=== PATIENT | female | born 1980 | race Caucasian/White ===

== ENCOUNTER → 2016-07-19 | Outpatient (CLI) | payer OTHER ==
[~2016-07-19] MED LIST: ALBUAER19; ERGO500037 PO; GLAT1INJ SQ; MECL25TA2 PO; ULT/50 PO
--- NOTE | 2016-07-22 07:52 | MAMMOGRAPHY REPORT ---
UNILATERAL LEFT DIGITAL DIAGNOSTIC MAMMOGRAM TOMOSYNTHESIS AND TARGETED LEFT ULTRASOUND: 07/19/2016 CLINICAL HISTORY: Callback from screening mammogram for left asymmetry and left breast calcification s. The patient reports a family history of breast cancer in her grandmother and sister. Her sister was in her 30s when diagnosed. TECHNIQUE: Breast tomosynthesis in addition to standard 2D mammography was performed. Left CC and MLO 2-D and tomosynthesis images and spot magnification left CC and ML views were obtained. COMPARISON: Comparison is made to exam dated: 07/10/2016 mammogram - [facility]. BREAST COMPOSITION: The tissue of the left breast is heterogeneously dense, which may obscure small masses. FINDINGS: Spot compression views of the left breast demonstrate a possible obscured mass in the lef t subareolar/9:00 breast. Spot magnification views demonstrate a few scattered punctate benign-appe aring calcifications in the left medial breast, without a suspicious cluster of calcifications seen. Targeted ultrasound was performed of the left breast in the region of the possible mammographic mass . In the left breast at 6:00 periareolar region, there is an oval slightly hypoechoic parallel christiana d mass which measures 1.4 x 0.7 x 1.1 cm. The margins are not completely circumscribed on the ultra sound images. This likely corresponds with the mammographic mass and is indeterminant. Recommend u ltrasound guided core needle biopsy for further evaluation. This likely represents a fibroadenoma. IMPRESSION: ACR BI-RADS CATEGORY 4: SUSPICIOUS, TARGETED ULTRASOUND ACR BI-RADS CATEGORY 4: SUSPICI OUS Hypoechoic 1.4 cm mass in the left breast at 6:00 periareolar region on ultrasound, which is felt to correlate with the mammographic mass. The mass is indeterminate and ultrasound guided core needle biopsy is recommended for further evaluation. This likely represents a fibroadenoma. A phone call was made to the physician's office to confirm faxed results were received. The patient has been verbally notified of the results. She tentatively scheduled the biopsy before leaving the department. Approximately 10% of breast cancers are not detected with mammography. A negative mammographic repor t should not delay biopsy if a clinically suggestive mass is present. Brianna Chen M.D. ah/:07/19/2016 08:29:15 Campus Administrative Assistant: Ramya MCGEE(Candelaria)(M), [facility] letter sent: Abnormal 4/5 BI-RADS Code: ACR BI-RADS Category 4: Suspicious Ultrasound BI-RADS: ACR BI-RADS Category 4: Suspic ious
== END | disposition home or self-care (01) ==
LOC: C.MAMM 07:44
PROVIDERS: ATTEND Obstetrics & Gynecology
DX: R92.0 Mammographic microcalcification found on diagnostic imaging of breast (principal); N64.89 Other specified disorders of breast; N63 Unspecified lump in breast

== ENCOUNTER → 2016-07-24 | Outpatient (CLI) | payer OTHER ==
--- NOTE | 2016-07-24 08:47 | Discharge Instructions ---
Discharge Instructions Procedure Procedure Date: Jul 24, 2016. Reason for visit: Left Mass. Discharge Discharge Date: Jul 24, 2016. Discharge Diagnosis: post left breast ultrasound guided core biopsy Instructions Activity Recommendations: Additional Limitations (see below) Return to School/Work: no limitations Recommended Home Diet: No Limitations Provider Instructions: ACTIVITY RECOMMENDATIONS: * No lifting, pushing, pulling or exercising the affected side for three days. RETURN TO SCHOOL/WORK: * You may return to work/school after the procedure, but do not perform any strenuous activities for 24 to 48 hours. MEDICATIONS: * Tylenol (two 325 mg) every four to six hours if needed for mild pain (if not allergic to Tylenol). DIET: * Resume previous diet. SPECIAL CARE INSTRUCTIONS: * Keep biopsy site dry for 24 hours. May shower after 24 hours, but do not soak (bathe) incision. * May remove Tegaderm (plastic patch) tomorrow AFTER showering. * Leave the steri-strips on for one week. Allow the steri-strips to fall off by themselves. If not off after one week, you may remove them. You may place a Bandaid crosswise over the strips, if desired. * Apply ice 10 minutes on and 10 minutes off as needed. * Wear a bra at bedtime to sleep more comfortably for 2-3 days. * Your referring physician should have the results after approximately 5 to 7 business days. * Call for unusual bleeding, fever, drainage, etc or if you have any questions call [phone] during normal business hours or after hours call Dr Acevedo, . FOLLOW UP VISIT: Follow-up with Referring Physician as scheduled. Allergies Coded Allergies: Mustard (Verified Adverse Reaction, Intermediate, ABDOMINAL CRAMPS, 09/12/14 ) Penicillins (Verified Adverse Reaction, Intermediate, SEVERE NAUSEA AND VOMITTING, 09/12/14) Melida Sebastian Recommendations: Call your doctor if: * Temperature above 101 degrees * Pain not relieved by pain medicine ordered * There is increased drainage or redness from any incision * You have any unanswered questions or concerns. Your Doctors Instructions noted above were prepared by provider Perla Acevedo. Patient Signature Section: Patient Instructions Signature Page Shannon Garcia Patient (or Guardian) Signature/Date: I have read and understand the instructions given to me by my caregivers. Caregiver/RN/Doctor Signature/Date: The above-named patient and/or guardian has received patient instructions on this date. + Original Patient Signature Page (only) stays with chart. Please make copy for patient.
--- NOTE | 2016-07-26 08:28 | MAMMOGRAPHY REPORT ---
THIS REPORT HAS BEEN AMENDED. ULTRASOUND GUIDED BIOPSY LEFT BREAST: 07/24/2016 CLINICAL HISTORY: Indeterminate solid 1.4 cm mass in the 6:00 periareolar left breast. Patient pres ents for ultrasound-guided core needle biopsy. COMPARISON: Comparison is made to exams dated: 07/19/2016 ultrasound, 07/19/2016 mammogram, and 016 mammogram - [facility]. PATIENT CONSENT: The procedure, risks and benefits were discussed with the patient and informed writ ten consent was obtained. Specific risks to this procedure include: bleeding, infection, puncture of adjacent structure, nontarget biopsy, sampling error and medication reaction. PROCEDURE DESCRIPTION: A time out was performed and the right breast was agreed as the site of biops y. The skin was prepped and draped in the usual sterile fashion. The parallel hypoechoic solid mass in the 6:00 periareolar left breast was chosen as the target for biopsy. Subcutaneous and intraparen chymal 1% buffered lidocaine was administered as local anesthesia. A skin incision was made. Throug h the incision, 5 samples were taken with a 14 gauge Achieve biopsy device. A metallic marker was pl aced at the biopsy site. Hemostasis was achieved after manual compression. The patient tolerated the procedure well and there was no immediate complication. The samples were sent to the pathology dep artment in appropriately labeled container. Postprocedure left CC and ML tomosynthesis images were obtained. There is a new ribbon-shaped metal lic biopsy marker outlining with the mammographic mass in question. No significant postbiopsy hemat steven is identified. IMPRESSION: ULTRASOUND GUIDED BIOPSY Status post ultrasound-guided core biopsy of a solid mass in the 6:00 periareolar left breast, with biopsy marker placed at the site. The patient will receive notification of the biopsy results from her referring physician. Perla Acevedo M.D. ay/:07/24/2016 09:05:24 Attending Technologist: Dr. Perla Acevedo, [facility] Attraction Attendant: Mary MCGEE(R)(M), [facility] AMENDMENT: 07/31/2016 Perla Acevedo M.D. Pathology results from ultrasound guided core biopsy of a hypoechoic solid mass in the deep 6:00 lef t breast yielded a benign fibroepithelial proliferation. See comments. Negative for DCIS and invas otoniel carcinoma. Sections revealed dense fibrous tissue with admixed benign appearing ductal structur es. The features are suggestive of a fibroadenoma though a well-defined border with surrounding tis dinh is not identified within the biopsies and the typical intracanalicular growth pattern is not see n. Given these pathology results and the benign mammographic appearance would recommend repeat left carl mography and repeat targeted ultrasound to ensure stability in 6 months. letter sent: Follow Up Recommended 3
--- NOTE | 2016-07-26 08:31 | MAMMOGRAPHY REPORT ---
UNILATERAL LEFT DIGITAL DIAGNOSTIC MAMMOGRAM TOMOSYNTHESIS: 07/24/2016 CLINICAL HISTORY: Indeterminate solid appearing mass in the 6:00 periareolar left breast. Patient p resents for ultrasound-guided core needle biopsy. Please refer to the report from left breast ultrasound guided core biopsy performed at the same time for full detail. IMPRESSION: POST PROCEDURE IMAGING FOR MARKER PLACEMENT Please refer to the report from left breast ultrasound guided core biopsy performed at the same time for full detail. Approximately 10% of breast cancers are not detected with mammography. A negative mammographic repor t should not delay biopsy if a clinically suggestive mass is present. Perla Acevedo M.D. ay/:07/24/2016 08:47:54 Silver Wrapper: Mary MCGEE(R)(M), [facility] BI-RADS Code: Post Procedure Imaging For Marker Placement
== END | disposition home or self-care (01) ==
LOC: C.MAMM 07:39
PROVIDERS: ATTEND Obstetrics & Gynecology
DX: N63 Unspecified lump in breast (principal)

== ENCOUNTER → 2016-12-26 | Outpatient (CLI) | payer OTHER ==
[2016-12-26 12:09] LABS: BASO % 0.4 %; BASO ABS # 0.04 K/uL (0-0.2); COMPLETE YES; HEMATOCRIT 41.3 % (37-47); IG% 0.2 %; LYMPH % 22.3 %; LYMPH ABS # 2.03 K/uL (1.2-3.4); MEAN CELL VOLUME 89.8 fL (80-100); MEAN CORPUSCULAR HEMOGLOBIN 30.2 pg (25-34); MEAN CORPUSCULAR HGB CONC 33.7 g/dl (32-36); MEAN PLATELET VOLUME 10.1 fL (7.4-10.4); MONO % 9.9 %; NEUT % 65.2 %; PLATELET COUNT 340 K/uL (130-400); WHITE BLOOD COUNT 9.09 K/uL (4.8-10.8)
[2016-12-26 12:21] LABS: ALT/SGPT 22 U/L (12-78); BLOOD UREA NITROGEN 9 mg/dl (7-18); BUN/CREATININE RATIO 12.3 (10-20); CARBON DIOXIDE 24 mmol/L (21-32); CHLORIDE 106 mmol/L (98-107); CHOLESTEROL 148 mg/dl (0-200); CREATININE 0.69 mg/dl (0.60-1.20); GLUCOSE 94 mg/dl (70-99); POTASSIUM 3.8 mmol/L (3.5-5.1); SODIUM 139 mmol/L (136-145)
[2016-12-26 12:24] LABS: ALB/GLOB RATIO 0.9 (0.9-2); ALKALINE PHOSPHATASE 64 U/L (45-117); AST/SGOT 16 U/L (15-37); CHOLESTEROL/HDL RATIO 2.9; HDL CHOLESTEROL 51 mg/dl; LDL CHOLESTEROL CALCULATED 88 mg/dl; TRIGLYCERIDES 47 mg/dl (0-150); VERY LOW DENSITY LIPOPROT CALC 9 mg/dl
[2016-12-26 12:29] LABS: CALCIUM 8.8 mg/dl (8.5-10.1)
== END | disposition home or self-care (01) ==
LOC: C.LAB1850 10:53
PROVIDERS: ATTEND Family Medicine
DX: Z13.220 Encounter for screening for lipoid disorders (principal); Z13.0 Encounter for screening for diseases of the blood and blood-forming organs and certain disorders involving the immune mechanism; R51 Headache; E53.8 Deficiency of other specified B group vitamins; E55.9 Vitamin D deficiency, unspecified

== ENCOUNTER → 2017-01-22 | Outpatient (CLI) | payer OTHER ==
--- NOTE | 2017-01-22 15:37 | MAMMOGRAPHY REPORT ---
UNILATERAL LEFT DIGITAL DIAGNOSTIC MAMMOGRAM TOMOSYNTHESIS WITH CAD AND TARGETED LEFT ULTRASOUND: 01/11 CLINICAL HISTORY: Status post ultrasound guided biopsy of a left 6:00 breast mass July 2016, which yielded a benign fibroepithelial proliferation, here for short interval follow-up. The patient repo rts no current complaints. TECHNIQUE: Breast tomosynthesis in addition to standard 2D mammography was performed. Current study was also evaluated with a Computer Aided Detection (CAD) system. Left CC and MLO 2-D and tomosynthes is images were obtained. COMPARISON: Comparison is made to exams dated: 07/24/2016 mammogram, 07/24/2016 ultrasound biopsy, 07/19 ultrasound, 07/19/2016 mammogram, and 07/10/2016 mammogram - [facility]. BREAST COMPOSITION: The tissue of the left breast is heterogeneously dense, which may obscure small masses. FINDINGS: Again noted is an obscured mass in the left inferior breast at approximately 6 to 7:00, wi th an associated biopsy marker clip within it. The mass does not appear significantly changed mammog raphically compared to the prior exam. The remainder of the left breast is stable compared to prior e xams, without suspicious masses, calcifications, or areas of architectural distortion noted. Targeted ultrasound was performed of the region of the previously biopsied mass. In the left 6:00 pe riareolar region, again noted is an oval hypoechoic mass. The mass currently measures 1.2 x 0.7 x 1. 0 cm, not significantly changed compared to the July 2016 exam where the mass measured 1.4 x 0.7 x 1.1 cm. A biopsy marker clip is seen within the mass. Given that the mass yielded benign pathology on biopsy and given the stability, the mass is considered benign and likely represents a fibroadenom a. IMPRESSION: ACR BI-RADS CATEGORY 2: BENIGN, TARGETED ULTRASOUND ACR BI-RADS CATEGORY 2: BENIGN The hypoechoic 1.2 cm mass in the left 6:00 breast is stable mammographically and sonographically com pared to the July 2016 exam. Given that the mass yielded benign pathology on biopsy and given the stability, the mass is considered benign and likely represents a fibroadenoma. There is no mammogra phic or targeted sonographic evidence of malignancy. Return to annual mammogram screening schedule is recommended, due June 2017. The patient has been verbally notified of the results. Approximately 10% of breast cancers are not detected with mammography. A negative mammographic report should not delay biopsy if a clinically suggestive mass is present. Brianna Chen M.D. ah/:01/22/2017 10:20:51 Fisher Crab: Frida YE (R)), [facility] letter sent: Normal 1/2 BI-RADS Code: ACR BI-RADS Category 2: Benign Ultrasound BI-RADS: ACR BI-RADS Category 2: Benign
== END | disposition home or self-care (01) ==
LOC: C.MAMM 09:50
PROVIDERS: ATTEND Nurse Practitioner
DX: R92.2 Inconclusive mammogram (principal)

== ENCOUNTER → 2017-07-11 | Outpatient (CLI) | payer OTHER ==
--- NOTE | 2017-07-15 13:36 | MAMMOGRAPHY REPORT ---
BILATERAL DIGITAL SCREENING MAMMOGRAM TOMOSYNTHESIS WITH CAD: 07/11/2017 CLINICAL HISTORY: Routine screening. Patient has no complaints. TECHNIQUE: Breast tomosynthesis in addition to standard 2D mammography was performed. Current study was also evaluated with a Computer Aided Detection (CAD) system. COMPARISON: Comparison is made to exams dated: 01/22/2017 ultrasound, 01/22/2017 mammogram, 07/24/2016 mammogram, 07/24/2016 ultrasound biopsy, 07/19/2016 ultrasound, and 07/19/2016 mammogram - [facility]. BREAST COMPOSITION: The tissue of both breasts is heterogeneously dense, which may obscure small mas ses. FINDINGS: No suspicious masses, calcifications, or areas of architectural distortion are noted in ei ther breast. There has been no significant interval change compared to prior exams. A biopsy marker clip is again noted within the left central posterior breast from prior benign biopsy. IMPRESSION: ACR BI-RADS CATEGORY 2: BENIGN There is no mammographic evidence of malignancy. A 1 year screening mammogram is recommended. The pa tient will receive written notification of the results. Approximately 10% of breast cancers are not detected with mammography. A negative mammographic report should not delay biopsy if a clinically suggestive mass is present. Brianna Chen M.D. /:07/11/2017 16:31:09 Blaster Helper: Ramya Sroto, [facility] letter sent: Normal 1/2 BI-RADS Code: ACR BI-RADS Category 2: Benign
== END | disposition home or self-care (01) ==
LOC: C.MAMM 08:41
PROVIDERS: ATTEND Physician Assistant
DX: Z12.31 Encounter for screening mammogram for malignant neoplasm of breast (principal)

== ENCOUNTER → 2017-07-11 | Outpatient (CLI) | payer OTHER ==
--- NOTE | 2017-07-11 09:37 | DIAGNOSTIC IMAGING REPORT ---
C-SPINE ROUTINE 4 OR 5 VIEWS CLINICAL HISTORY: Cervical radiculopathy. No recent trauma. COMPARISON STUDY: MRI of the cervical spine May 06, 2011. FINDINGS: Alignment of the cervical spine is anatomic with the exception of straightening. There is minimal osteophytosis at C6-C7. Facet joints are intact. There is mild bony neural foraminal narrowing of the right C6-C7 neural foramen. There is no fracture. IMPRESSION: 1. No cervical spine fracture. 2. Mild osteophytosis at C6-C7 with mild bony neural foraminal narrowing of the right C6-C7 neural foramen. Electronically signed by: Brandon Wilder M.D. 07/11/2017 9:36 AM Dictated Date/Time: 07/11/2017 9:33 AM
== END | disposition home or self-care (01) ==
LOC: C.RAD1850 09:12
PROVIDERS: ATTEND Family Medicine
DX: M54.12 Radiculopathy, cervical region (principal); M25.78 Osteophyte, vertebrae

== ENCOUNTER → 2017-07-21 | Outpatient (CLI) | payer OTHER ==
--- NOTE | 2017-07-21 20:32 | DIAGNOSTIC IMAGING REPORT ---
MRI OF THE CERVICAL SPINE WITHOUT IV CONTRAST CLINICAL HISTORY: Neck pain. Chronic upper extremity tingling and numbness. COMPARISON STUDY: MRI of the cervical spine dated 05/06/2011. TECHNIQUE: MRI of the cervical spine is performed utilizing various T1 and T2-weighted sequences in the axial and sagittal planes. IV contrast was not administered for this examination. FINDINGS: Cervical spine: Vertebral body height and alignment are maintained throughout the cervical spine. There is mild straightening of the cervical lordosis. The atlantodental articulation appears maintained. The spinous processes are intact as imaged. Tiny anterior osteophytes are seen in the lower cervical region. Intervertebral discs: Mild degenerative disc desiccation is seen. There is mild loss of height at C6-C7. Spinal cord: The cervical spinal cord is normal in morphology and signal intensity. C2-C3: Unremarkable. C3-C4: There is minimal disc bulge eccentric to the left. The central canal and neural foramina are patent. C4-C5: Unremarkable. C5-C6: A posterior disc osteophyte complex abuts the ventral cord. Predominantly uncovertebral arthropathy causes mild to moderate left greater than right neural foraminal stenosis. C6-C7: A posterior disc osteophyte complex abuts the ventral cord. Uncovertebral and facet arthropathy cause mild to moderate right greater than left neural foramen stenosis. C7-T1: Unremarkable. Soft tissues: The prevertebral and paraspinous soft tissues are within normal limits. Brain parenchyma: Partially imaged brain parenchyma at the skull base is normal in appearance. IMPRESSION: 1. The cervical spinal cord is normal in morphology and signal intensity. 2. Mild cervical spondylosis as above, greatest at C5-C6 and C6-C7. This has only modestly progressed from the 05/06/2011 examination. Dictated: 07/21/2017 7:59 PM Transcribed: 07/21/2017 8:31 PM [email or web address] Electronically signed by: Jorge Servin M.D. 07/21/2017 8:41 PM Dictated Date/Time: 07/21/2017 7:59 PM
== END | disposition home or self-care (01) ==
LOC: C.MRI 19:00
PROVIDERS: ATTEND Family Medicine
DX: M47.892 Other spondylosis, cervical region (principal)

== ENCOUNTER 2024-10-02 18:11 | Inpatient (IN) ==
[2024-10-02] MEDS: ASPIRIN CHEW 324 MG PO STA (18:35)
[2024-10-02] MEDS: MoRPHine SULFATE 4 MG/ML 1 ML CARP\\VIAL IV STA ×2 (18:35→20:52)
[2024-10-02] MEDS: ONDANSETRON INJ 2 MG/ML 2 ML VIAL IV STA (18:37)
--- NOTE | 2024-10-02 18:45 | Emergency Department Note ---
Impression & Plan Acute cholecystitis, Chest pain, Right upper quadrant abdominal pain, Cholelithiasis ED Provider Note NAME: DAVID DEL CID AGE: 43 SEX: F : 1980 ARRIVES VIA: Walk-In INFORMANT: Patient, ED PROVIDER(S): Chano Boykin DO CHIEF COMPLAINT: Chest pain HPI: The patient is a 43-year-old female who presented to the emergency department for an evaluation of anterior chest pain. She describes chest pain that goes down both arms. It goes into her back. The patient denies having any fevers. The patient denies having any coughing or lower extremity pain. She denies having any vomiting. She does complain of pain in her middle back. The patient does have a history of MS. She has not been on large doses of steroids recently. ROS: See above HPI for pertinent positives & negatives. A total of 10 systems reviewed and were otherwise negative. PAST MEDICAL HISTORY: See Below PAST SURGICAL HISTORY: See Below FAMILY HISTORY: See Below SOCIAL HISTORY: See Below HOME MEDICATIONS: See Below ALLERGIES: See Below VITALS: See Below PHYSICAL EXAMINATION: GENERAL: The is awake and alert. She is very anxious and appears to be uncomfortable. EYES: The conjunctivae are clear. The pupils are round and reactive. EARS, NOSE, MOUTH AND THROAT: The nose is without any evidence of any deformity. NECK: The neck is nontender and supple. RESPIRATORY: Normal respiratory effort is noted there is no evidence of wheezing rhonchi or rales CARDIOVASCULAR: Regular rate and rhythm noted there no murmurs rubs or gallops normal S1 normal S2. GASTROINTESTINAL: The abdomen was soft and mildly distended. There was significant right upper quadrant tenderness to palpation. MUSCULOSKELETAL/EXTREMITIES: There is no evidence of gross deformity full range of motion is noted in the hips and shoulders. SKIN: There is no obvious evidence of any rash. There are no petechiae, pallor or cyanosis noted. NEUROLOGIC: Patient is awake alert and oriented x3 MEDICAL DECISION MAKING: The patient is a 43-year-old female who presented to the emergency department for right upper quadrant abdominal pain. She initially started with chest pain into her back. On physical exam she had reproducible right upper quadrant abdominal pain. I discussed the patient's laboratory and radiographic studies with her. She was treated with IV pain medication and IV antiemetics in the emergency department. She was started on IV antibiotics when her ultrasound appeared to be consistent with distended gallbladder with gallstones. Given her physical exam this is worrisome for cholecystitis. I discussed her condition with the on-call general surgical group. I also discussed her condition with the on-call [facility] hospitalist group. They have agreed to evaluate the patient in the emergency department for further management and disposition. Triage Nursing notes reviewed. Prior medical records reviewed Vital Signs: reviewed and remarkable for no significant abnormalities Differential diagnosis: Cardiac ischemia, aortic dissection, pulmonary embolism, pneumothorax, pneumonia, pericarditis, myocarditis, esophageal rupture, GERD, cholecystitis, pancreatitis, musculoskeletal, as well as other pathologies. ER treatment provided: See below Diagnostics interpreted by me: ECG: EKG was obtained in the emergency department. My interpretation is normal sinus rhythm at 80 bpm. There was no PVCs noted. There was no acute ST segment abnormalities noted. This was compared to a tracing from September 28, 2020. No specific changes were noted. Cardiac Monitoring: An order was placed for continuous cardiac monitoring. The monitor shows a rate of 82 bpm with sinus rhythm. Laboratory studies: As stated above and show below. Imaging studies: See below. Radiographic imaging was reviewed by myself Consultation(s): I discussed this case with Ashish who is on-call for general surgery. Dr. Devlin who is on-call for the [facility] hospitalist group was notified about the patient. Past Med/Surg History Problem List (Updated 10/02/24 @ 21:13 by Chano Boykin DO) Right upper quadrant abdominal pain (Acute) Chest pain (Acute) Acute cholecystitis (Acute) Cholelithiasis (Acute) Hyperlipidemia Multiple sclerosis Mixed urge and stress incontinence Prediabetes Incomplete bladder emptying Mixed urge and stress incontinence Urinary Incontinence CMC (carpometacarpal) synovitis GERD (gastroesophageal reflux disease) Anxiety and depression Extrinsic asthma Headache, migraine Insomnia Vitamin B12 deficiency Vitamin D deficiency Medical History Dizziness 05/27/22 History of anesthesia reaction difficulty waking during last cystoscopy 11/2023 History of urinary tract infection History of COVID-19 Multiple, most recent summer 2022, symptoms resolved Pap smear of cervix with high grade squamous intraepithelial lesion (HGSIL) 2011 Surgical History S/P urological surgery (02/2024) cystoscopy / bulkamid procedure History of rotator cuff surgery (01/2024) left History of carpal tunnel release (2019) Left hand S/P tonsillectomy S/P LEEP (2011) For HGSIL, colposcopy w/ LEEP, neg bx, neg path on LEEP History of robot-assisted laparoscopic hysterectomy History of colposcopy (2006) LGSIL on 04/29/07 pap 11/2011 HGSIL pap, neg colpo bx, neg path on LEEP H/O tubal ligation History of appendectomy Family History Grandmother (Paternal) Breast cancer Cervical cancer Uterine cancer Ovarian cancer Family/Other Cerebral arterial aneurysm Father Diabetes Hypercholesteremia Mother Hypertension Grandfather (Maternal) Prostate cancer Denies family history of Colorectal cancer Social History Smoking Status: Never smoker Second Hand Exposure: No; Do You Dip or Chew Tobacco: No; Hx Alcohol Use: No Hx Substance Use: No Preferred Language: Nigerian Communication Ability: Effective Visual Impairment: No Limitations Hearing Ability: Normal Band Tacker Required: No Beliefs That Will Affect Care: None marital status: Single Current Living Situation: Family Current Living Situation Comment: Daughters w/ her current occupational status: employed current occupation: [employer] How many Children do You have: 2 Feels Safe at Home: Yes Childhood Exposure to Second-Hand Smoke: No Diet: low carbohydrate Diet Comment: no soda, no fast food caffeine: Yes (coffee) during the past year weight has: remained stable Dental Care, Regularly: Yes Physical Activity Frequency: Daily Physical Activity Frequency Comment: walking 2 miles daily, cardio at home Seatbelt Use: always Sunscreen Use: Yes Assistive Devices: None Allergies Allergies Allergy/AdvReac Type Severity Reaction Status Date / Time ferric subsulfate Allergy Unknown MONSEL'S Verified 08/13/24 10:03 SOLUTION-- VOMITTING, SEVERE STOMACH PAIN mustard AdvReac Intermediate Abdominal Verified 08/13/24 10:03 cramps Penicillins AdvReac Intermediate Severe N/V Verified 08/13/24 10:03 Home Meds Home Medications Medication Instructions Recorded Confirmed cyanocobalamin (vitamin B-12) 1,000 mcg sublingual QPM #30 tabs 03/08/19 08/13/24 1,000 mcg sublingual tablet cholecalciferol (vitamin D3) 25 2,000 unit PO QPM 08/02/22 08/13/24 mcg (1,000 unit) capsule Previous Rx's Medication Instructions Recorded rizatriptan 10 mg disintegrating 10 mg PO Q2H PRN migraine headache 08/04/23 tablet #12 tabs estradiol 0.075 mg/24 hr 1 patch transdermal .COMPLEX #24 ea 04/28/24 semiweekly transdermal patch meclizine 25 mg tablet 25 mg PO DAILY PRN history of 06/04/24 vertigo #30 tabs ocrelizumab 30 mg/mL intravenous 600 mg (20 mL) IV Q6MO 6 months 06/08/24 solution (Ocrevus) #20 mL ocrelizumab 30 mg/mL intravenous 600 mg (20 mL) IV .COMPLEX #20 mL 06/18/24 solution (Ocrevus) pantoprazole 40 mg tablet,delayed 40 mg PO DAILY #90 tabs 09/16/24 release albuterol sulfate 90 mcg/actuation 1 - 2 puff inhalation Q4H PRN 09/27/24 aerosol inhaler extrinsic asthma #8.5 grams tirzepatide (weight loss) 7.5 7.5 mg (0.5 mL) subcut .weekly #2 10/01/24 mg/0.5 mL subcutaneous pen mL injector (Zepbound) Results & Data (ED) Vital Signs Vital Signs - 24 hr 10/02/24 18:14 10/02/24 18:28 10/02/24 18:40 Temperature 36.6 C Temperature Source Temporal Artery Scan Pulse Rate 82 82 Pulse Rate [Apical] Pulse Rhythm [Apical] Pulse Strength [Apical] Respiratory Rate 18 Respiratory Effort / Characteristics Non-Labored Spontaneous Respiratory Depth Normal Respiratory Pattern Regular Blood Pressure 169/91 H Blood Pressure [Right Arm] Blood Pressure Mean 117 Blood Pressure Mean [Right Arm] Blood Pressure Position Sitting Blood Pressure Position [Right Arm] Pulse Oximetry 100 98 Oxygen Delivery Method Room Air Room Air Sepsis Recent Fever Within 48 Hours No Sepsis New/Unexplained Change in Mental Status N/A Sepsis Action Taken by Nursing No Action Required 10/02/24 18:40 10/02/24 18:40 10/02/24 19:08 Temperature Temperature Source Pulse Rate 78 Pulse Rate [Apical] 76 80 Pulse Rhythm [Apical] Regular Pulse Strength [Apical] Normal Respiratory Rate 16 13 16 Respiratory Effort / Characteristics Non-Labored Spontaneous Non-Labored Respiratory Depth Normal Normal Respiratory Pattern Regular Regular Blood Pressure Blood Pressure [Right Arm] 144/88 H 117/62 Blood Pressure Mean Blood Pressure Mean [Right Arm] 106 80 Blood Pressure Position Blood Pressure Position [Right Arm] Lying Pulse Oximetry 98 98 98 Oxygen Delivery Method Room Air Room Air Room Air Sepsis Recent Fever Within 48 Hours Sepsis New/Unexplained Change in Mental Status Sepsis Action Taken by Nursing 10/02/24 19:26 10/02/24 21:00 Temperature Temperature Source Pulse Rate Pulse Rate [Apical] 81 82 Pulse Rhythm [Apical] Regular Regular Pulse Strength [Apical] Normal Normal Respiratory Rate 16 16 Respiratory Effort / Characteristics Non-Labored Non-Labored Respiratory Depth Normal Normal Respiratory Pattern Regular Regular Blood Pressure Blood Pressure [Right Arm] 122/68 114/84 Blood Pressure Mean Blood Pressure Mean [Right Arm] 86 94 Blood Pressure Position Blood Pressure Position [Right Arm] Lying Lying Pulse Oximetry 96 96 Oxygen Delivery Method Room Air Room Air Sepsis Recent Fever Within 48 Hours Sepsis New/Unexplained Change in Mental Status Sepsis Action Taken by [facility] Medications Current Medication List: was personally reviewed by me Laboratory Data Attestation: I reviewed the patient's lab results. 10/02/24 18:23 10/02/24 18:23 Lab Results 10/02/24 Range/Units 18:23 WBC 10.66 (4.8-10.8) K/ul RBC 5.21 (4.20-5.40) M/uL Hgb 15.4 (12.0-16.0) g/dl Hct 44.8 (37.0-47.0) % MCV 86.0 (80.0-100.0) fL MCH 29.6 (25.0-34.0) pg MCHC 34.4 (32.0-36.0) g/dL RDW Std Deviation 40.2 (36.4-46.3) fL RDW Coeff of Mauricio 13.0 (11.5-14.5) % Plt Count 393 (130-400) K/uL MPV 10.8 (9.4-12.4) fL Immature Gran % (Auto) 0.3 % Neut % (Auto) 57.5 % Lymph % (Auto) 29.7 % Glenn % (Auto) 10.0 % Eos % (Auto) 2.0 % Baso % (Auto) 0.5 % Neut # (Auto) 6.13 (1.40-6.50) K/uL Lymph # (Auto) 3.17 (1.20-3.40) K/uL Glenn # (Auto) 1.07 H (0.11-0.59) K/uL Eos # (Auto) 0.21 (0.00-0.50) K/uL Baso # (Auto) 0.05 (0.00-0.20) K/uL Immature Gran # (Auto) 0.03 (0.01-0.20) K/uL PT 11.3 (9.0-12.0) Seconds INR 1.0 (0.9-1.1) APTT 31 (21-31) Seconds PTT Ratio 1.2 Sodium 142 (136-145) mmol/L Potassium 3.4 L (3.5-5.1) mmol/L Chloride 106 (98-107) mmol/L Carbon Dioxide 24 (21-32) mmol/L Anion Gap 12 H (3-11) BUN 11 (6-23) mg/dl Creatinine 0.70 (0.6-1.2) mg/dl Est Cr Clr Drug Dosing 108.0 ml/min eGFR 109.30 BUN/Creatinine Ratio 15.7 (10-20) Glucose 118 H (70-99(Fasting)) mg/dl Calcium 9.7 (8.6-10.3) mg/dl Total Bilirubin 0.5 (0.2-1.0) mg/dl AST 42 H (13-39) U/L ALT 33 (7-52) U/L Alkaline Phosphatase 74 (34-104) U/L Troponin I High Sens 3.1 (0-14) pg/ml Total Protein 8.1 (6.0-8.3) gm/dl Albumin 4.8 (3.4-5.0) gm/dl Globulin 3.3 (2.5-4.0) gm/dl Albumin/Globulin Ratio 1.5 (0.9-2) Lipase 28 (11-82) U/L Administered Medications Discontinued Medications Aspirin (Aspirin Chew 324 Mg) 324 mg PO NOW STA Stop: 10/02/24 18:28 Last Admin: 10/02/24 18:35 Dose: Not Given Documented By: ELISE Promethazine HCl (Phenergan) 12.5 mg in 50.5 mls @ 202 mls/hr IV NOW STA Stop: 10/02/24 20:55 Last Admin: 10/02/24 20:52 Dose: 202 mls/hr Documented By: JEANINE Co-signed By: PAMELA Morphine Sulfate (Morphine Sulfate 4 Mg/Ml 1 Ml Carp\Vial) 4 mg IV NOW STA Stop: 10/02/24 18:28 Last Admin: 10/02/24 18:35 Dose: 4 mg Documented By: ELISE Morphine Sulfate (Morphine Sulfate 4 Mg/Ml 1 Ml Carp\Vial) 4 mg IV NOW STA Stop: 10/02/24 20:42 Last Admin: 10/02/24 20:52 Dose: 4 mg Documented By: JEANINE Co-signed By: PAMELA Ondansetron HCl (Ondansetron Inj 2 Mg/Ml 2 Ml Vial) 4 mg IV NOW STA Stop: 10/02/24 18:28 Last Admin: 10/02/24 18:37 Dose: 4 mg Documented By: ELISE Imaging Data Attestation: I personally reviewed and interpreted this imaging study as follows: My Impression: 1 view chest x-ray was obtained in the emergency department. My interpretation is no free air or definite infiltrate, final report below. Ultrasound of the right upper quadrant was obtained. My interpretation is distended gallbladder, final report below. Radiologist's Impression: Chest X-Ray 10/02/24 18:27 Chest radiograph, one view History: Chest pain Comparison: September 28, 2020 Findings: Single AP view of the chest performed. No focal consolidation or pleural effusion. No pneumothorax. The cardiomediastinal silhouette is within normal limits. Normal pulmonary vascularity. No evidence for lymphadenopathy. No visualized bony or soft tissue abnormality. Impression: Normal chest radiograph Electronically signed by García Vance 10-02-2024 8:01 PM Discharge Plan Visit Data Chief Complaint: Chest Pain Stated Complaint: CHEST PAIN ED Provider: Chano Boykin Discharge Problem: Acute cholecystitis, Chest pain, Right upper quadrant abdominal pain, Cholelithiasis Patient Disposition: Being Evaluated by Hospitalist Forms Stand Alone Forms: My [facility] Prescriptions Prescriptions: No Action Ocrevus 30 mg/mL solution 600 mg IV Q6MO 180 Days Qty: 20 1RF Ocrevus 30 mg/mL solution 600 mg IV .COMPLEX Qty: 20 1RF Rx Instructions: 600mg IV every 6 months. 30 mins before each infusion, Premedicate w/ Methylprednisolone 100mg IV, Diphenhydramine 25mg IV, and Acetaminophen 500mg PO.; May give an additional 25mg Diphenhydramine IV during infusion PRN pantoprazole 40 mg tablet,delayed release (DR/EC) 40 mg PO DAILY Qty: 90 0RF albuterol sulfate 90 mcg/actuation HFA aerosol inhaler 1 - 2 puff inhalation Q4H PRN (Reason: extrinsic asthma) Qty: 8.5 1RF Rx Instructions: 1 - 2 puffs inhalation Q4-6H PRN; Zepbound 7.5 mg/0.5 mL pen injector 7.5 mg subcut .weekly Qty: 2 0RF cyanocobalamin (vitamin B-12) 1,000 mcg tablet, sublingual 1,000 mcg SL QPM Qty: 30 rizatriptan 10 mg tablet,disintegrating 10 mg PO Q2H PRN (Reason: migraine headache) Qty: 12 5RF Rx Instructions: do not exceed 3 doses per 24 hrs cholecalciferol (vitamin D3) 25 mcg (1,000 unit) capsule 2,000 unit PO QPM estradiol 0.075 mg/24 hr patch semiweekly 1 patch transdermal .COMPLEX Qty: 24 4RF Rx Instructions: Replace patch every 3 to 4 days meclizine 25 mg tablet 25 mg PO DAILY PRN (Reason: history of vertigo) Qty: 30 1RF Referrals Referrals: Iza Apple DO [Primary Care Provider] -
[2024-10-02 18:54] LABS: Basophils # (auto) 0.05 K/uL (0.00-0.20); Basophils % (auto) 0.5 %; Eosinophils # (auto) 0.21 K/uL (0.00-0.50); Hematocrit (blood only) 44.8 % (37.0-47.0); Hemoglobin 15.4 g/dl (12.0-16.0); Immature Granulocytes # (auto) 0.03 K/uL (0.01-0.20); Immature Granulocytes % (auto) 0.3 %; Lymphocytes # (auto) 3.17 K/uL (1.20-3.40); Lymphocytes % (auto) 29.7 %; Mean Corpuscular Hemoglobin 29.6 pg (25.0-34.0); Mean Corpuscular Hgb Conc 34.4 g/dL (32.0-36.0); Mean Platelet Volume 10.8 fL (9.4-12.4); Monocytes # (auto) 1.07 K/uL (0.11-0.59); Neutrophils # (auto) 6.13 K/uL (1.40-6.50); Neutrophils % (auto) 57.5 %; Platelet Count 393 K/uL (130-400); RDW Standard Deviation 40.2 fL (36.4-46.3); Red Blood Count 5.21 M/uL (4.20-5.40); White Blood Count 10.66 K/ul (4.8-10.8)
[2024-10-02 19:10] LABS: Albumin Globulin Ratio 1.5 (0.9-2); Albumin Level 4.8 gm/dl (3.4-5.0); BUN Creatinine Ratio 15.7 (10-20); Bilirubin,Total 0.5 mg/dl (0.2-1.0); Calcium 9.7 mg/dl (8.6-10.3); Globulin 3.3 gm/dl (2.5-4.0); Potassium 3.4 mmol/L (3.5-5.1); Total Protein 8.1 gm/dl (6.0-8.3)
[2024-10-02 19:17] LABS: Troponin I High Sensitivity 3.1 pg/ml (0-14)
[2024-10-02 19:25] LABS: Partial Thromboplastin Ratio 1.2; Partial Thromboplastin Time 31 Seconds (21-31); Prothrombin Time 11.3 Seconds (9.0-12.0)
--- NOTE | 2024-10-02 20:01 | XRay Report ---
Chest radiograph, one view History: Chest pain Comparison: September 28, 2020 Findings: Single AP view of the chest performed. No focal consolidation or pleural effusion. No pneumothorax. The cardiomediastinal silhouette is within normal limits. Normal pulmonary vascularity. No evidence for lymphadenopathy. No visualized bony or soft tissue abnormality. Impression: Normal chest radiograph Electronically signed by García Vance 10-02-2024 8:01 PM
[2024-10-02] MEDS: PROMETHAZINE 12.5 MG/50.5 ML BAG IV STA (20:52)
--- NOTE | 2024-10-02 21:02 | History & Physical Report ---
Date of Service October 02, 2024 Assessment & Plan (1) Cholelithiasis: Plan: I evaluated the patient in room B3 in the emergency department. Due to findings on ultrasound and her clinical presentation she will be admitted to the surgical service proceeding as follows: Analgesia will be provided Antiemetics we provided Will hydrate her with IV fluids will make her n.p.o. after midnight (I do feel would be acceptable for her to have some clear liquids up until that time) we will repeat LFTs in the morning to ensure that there is not any transient elevation requiring further diagnostic evaluation Will initiate antibiotics cefoxitin will be utilized as the patient notes that penicillin type medicines cause severe nausea and vomiting Will tentatively plan on having the patient undergo cholecystectomy with Dr. Schneider this admission Will use SCDs for DVT prevention, no chemical means due to planned surgery She will be a level 1 full code History of Present Illness Chief Complaint: Cholelithiasis Primary Care Provider: Iza Apple DO This is a 43-year-old female who presented to the emergency department secondary to pain that was in the epigastric area with some radiation to her chest. She notes that since arrival to the emergency department the pain has since localized to her right upper quadrant. She did have nausea without vomiting. She denies any fevers, shakes, or chills. She notes that she has never had pain like this before and denies any postprandial pain over the past several weeks to months. She has had prior abdominal surgeries in the form of a hysterectomy and an appendectomy. She has not had any known cardiac issues. She does report that she has a history of multiple sclerosis and she receives ocrelizumab infusions with her most recent infusion being in July of this year. She notes that her next infusion is not due until January. She notes that her multiple sclerosis is stable. Since arrival to the emergency department patient has had labs and imaging which independent reviewed. CBC revealed white blood cell count, hemoglobin, hematocrit, and platelet count were normal. Coagulation studies were normal. Chemistry profile showed sodium is 142 with potassium of 3.4. BUN and creatinine are both normal. Her LFTs revealed that her total bilirubin, ALT and alkaline phosphatase are normal. Her AST is slightly elevated at 42. She has a nonelevated lipase. High-sensitivity troponin was not elevated at 3.1. An EKG showed normal sinus rhythm without changes indicative of acute ischemia. At the time of my interview the patient was resting comfortably in bed and she was in no distress. Allergies Allergy/AdvReac Type Severity Reaction Status Date / Time ferric subsulfate Allergy Unknown MONSEL'S Verified 08/13/24 10:03 SOLUTION-- VOMITTING, SEVERE STOMACH PAIN mustard AdvReac Intermediate Abdominal Verified 08/13/24 10:03 cramps Penicillins AdvReac Intermediate Severe N/V Verified 08/13/24 10:03 Home Medications Medication Instructions Recorded Confirmed Type cyanocobalamin (vitamin B-12) 1,000 mcg sublingual QPM #30 tabs 03/08/19 08/13/24 History 1,000 mcg sublingual tablet cholecalciferol (vitamin D3) 25 2,000 unit PO QPM 08/02/22 08/13/24 History mcg (1,000 unit) capsule rizatriptan 10 mg disintegrating 10 mg PO Q2H PRN migraine headache 08/04/23 08/13/24 Rx tablet #12 tabs estradiol 0.075 mg/24 hr 1 patch transdermal .COMPLEX #24 ea 04/28/24 08/13/24 Rx semiweekly transdermal patch meclizine 25 mg tablet 25 mg PO DAILY PRN history of 06/04/24 08/13/24 Rx vertigo #30 tabs ocrelizumab 30 mg/mL intravenous 600 mg (20 mL) IV Q6MO 6 months 06/08/24 08/13/24 Rx solution (Ocrevus) #20 mL ocrelizumab 30 mg/mL intravenous 600 mg (20 mL) IV .COMPLEX #20 mL 06/18/24 08/13/24 Rx solution (Ocrevus) pantoprazole 40 mg tablet,delayed 40 mg PO DAILY #90 tabs 09/16/24 Rx release albuterol sulfate 90 mcg/actuation 1 - 2 puff inhalation Q4H PRN 09/27/24 Rx aerosol inhaler extrinsic asthma #8.5 grams tirzepatide (weight loss) 7.5 7.5 mg (0.5 mL) subcut .weekly #2 10/01/24 Rx mg/0.5 mL subcutaneous pen mL injector (Zepbound) Past Med/Surg History Problem List (Updated 10/02/24 @ 20:58 by Fidel Jesus PA-C) Cholelithiasis Hyperlipidemia Multiple sclerosis Mixed urge and stress incontinence Prediabetes Incomplete bladder emptying Mixed urge and stress incontinence Urinary Incontinence CMC (carpometacarpal) synovitis GERD (gastroesophageal reflux disease) Anxiety and depression Extrinsic asthma Headache, migraine Insomnia Vitamin B12 deficiency Vitamin D deficiency Medical History Dizziness 05/27/22 History of anesthesia reaction difficulty waking during last cystoscopy 11/2023 History of urinary tract infection History of COVID-19 Multiple, most recent summer 2022, symptoms resolved Pap smear of cervix with high grade squamous intraepithelial lesion (HGSIL) 2011 Surgical History S/P urological surgery (02/2024) cystoscopy / bulkamid procedure History of rotator cuff surgery (01/2024) left History of carpal tunnel release (2019) Left hand S/P tonsillectomy S/P LEEP (2011) For HGSIL, colposcopy w/ LEEP, neg bx, neg path on LEEP History of robot-assisted laparoscopic hysterectomy History of colposcopy (2006) LGSIL on 04/29/07 pap 11/2011 HGSIL pap, neg colpo bx, neg path on LEEP H/O tubal ligation History of appendectomy Family History Grandmother (Paternal) Breast cancer Cervical cancer Uterine cancer Ovarian cancer Family/Other Cerebral arterial aneurysm Father Diabetes Hypercholesteremia Mother Hypertension Grandfather (Maternal) Prostate cancer Denies family history of Colorectal cancer Social History Smoking Status: Never smoker Second Hand Exposure: No; Do You Dip or Chew Tobacco: No; Hx Alcohol Use: No Hx Substance Use: No Preferred Language: Libyan Communication Ability: Effective Visual Impairment: No Limitations Hearing Ability: Normal Final Inspector Required: No Beliefs That Will Affect Care: None marital status: Single Current Living Situation: Family Current Living Situation Comment: Daughters w/ her current occupational status: employed current occupation: [employer] How many Children do You have: 2 Feels Safe at Home: Yes Childhood Exposure to Second-Hand Smoke: No Diet: low carbohydrate Diet Comment: no soda, no fast food caffeine: Yes (coffee) during the past year weight has: remained stable Dental Care, Regularly: Yes Physical Activity Frequency: Daily Physical Activity Frequency Comment: walking 2 miles daily, cardio at home Seatbelt Use: always Sunscreen Use: Yes Assistive Devices: None Review of Systems Review of Systems: All systems reviewed & are unremarkable except as noted in HPI & below Physical Exam Constitutional: WD/WN, vitals as above Eyes: + anicteric sclerae ENMT: Ears: no hearing impairment and no external ear abnormality Sublingual jaundice is absent Neck: trachea midline Respiratory: normal respiratory effort; no respiratory distress and no labored breathing Cardiovascular: Rate/Rhythm: regular rate and regular rhythm Gastrointestinal (Abdomen): Abdomen is soft without distention or rigidity. Patient did have significant pain with palpation in the right upper quadrant with a positive Diop sign. She Musculoskeletal: No calf tenderness Skin: no jaundice Neurologic: moves all extremities Psychiatric: A+Ox3, euthymic affect Results & Data Results & Data Vital Signs (Past 12 Hours) Vital Signs Temp Pulse Pulse Resp BP BP Pulse Ox 10/02/24 19:26 81 16 122/68 96 10/02/24 19:08 80 16 117/62 98 10/02/24 18:40 78 13 98 10/02/24 18:40 76 16 144/88 H 98 10/02/24 18:40 98 10/02/24 18:28 82 10/02/24 18:14 36.6 C 82 18 169/91 H 100 O2 Del Method 10/02/24 19:26 Room Air 10/02/24 19:08 Room Air 10/02/24 18:40 Room Air 10/02/24 18:40 Room Air 10/02/24 18:40 Room Air 10/02/24 18:28 10/02/24 18:14 Room Air PG Care Time/CCT Total # of Minutes Spent Total Time Spent with Patient: Total time spent is greater than 50% in coordination of care (as documented) at patient's floor/unit and/or counseling patient: Coding Level of Care Code 33922 INT INP/OBS CARE MIN Diagnoses Cholelithiasis K80.20
[2024-10-02] MEDS: cefOXitin 2,000 MG/60 ML BAG IV STA (21:18)
--- NOTE | 2024-10-02 21:18 | Surgery Consultation ---
Date of Consultation October 02, 2024 Assessment & Plan (1) Acute cholecystitis: I discussed with the treating emergency room physician the patient is going to be admitted on the hospitalist service. From surgery perspective we recommend the following: Provide analgesics Provide antiemetics I feel it would be acceptable for patient have clear liquids this evening that she should be made n.p.o. after midnight Will repeat LFTs in the morning Antibiotics in the form of cefoxitin have been initiated by the emergency department physician and he should continue Provided there are no medical contraindications we will tentatively have the patient undergo cholecystectomy on 10/03/[address] Schneider about any physician group general surgery SCDs to be used for DVT prevention, no chemical means due to planned surgery She will be a level 1 full code Supervising Physician Co-Signing Physician Notes pnt d/w ELISHA, labs and imaging reviewed, agree with above. abd pain, wbc 15, us with gallstones, no cholecystitis. admit to medicine, plan for lap sarbjit tomorrow if time and space available, if not then maybe friday. History of Present Illness Reason for Consultation: Gallstones History of Present Illness This is a 43-year-old female who presented to the emergency department secondary to pain that was in the epigastric area with some radiation to her chest. She has a since arrival to the emergency department the pain has since localized to her right upper quadrant. She did have nausea without vomiting. She had denies any fevers, shakes, or chills. She notes that she has never had pain like this before and denies any postprandial pain over the past several weeks to months. She has had prior abdominal surgery in the form of a hysterectomy and an appendectomy. She has not had any known cardiac issues. She does report that she has a history of multiple sclerosis and receives ocrelizumab infusionsshe notes her most recent was infusion was in July and her next one is not due until January of this year. She notes that she has not had any recent issues with her multiple sclerosis. Since arrival to the emergency department the patient has had labs and imaging which I independently reviewed. A CBC revealed white blood cell count, hemoglobin, hematocrit, and platelet count were normal. Coagulation studies were normal. Chemistry profile showed sodium was 142 with a potassium of 3.4. BUN and creatinine were both normal. Her LFTs revealed that her total bilirubin, ALT, and alkaline phosphatase were normal. Her AST is slightly elevated at 142. She had a nonelevated lipase. High-sensitivity troponin was not elevated at 3.1. An EKG showed normal sinus rhythm without changes indicative of acute ischemia. At the time of my interview the patient was resting comfortably in bed and she was in no distress. Allergies Allergy/AdvReac Type Severity Reaction Status Date / Time ferric subsulfate Allergy Unknown MONSEL'S Verified 08/13/24 10:03 SOLUTION-- VOMITTING, SEVERE STOMACH PAIN mustard AdvReac Intermediate Abdominal Verified 08/13/24 10:03 cramps Penicillins AdvReac Intermediate Severe N/V Verified 08/13/24 10:03 Home Medications Medication Instructions Recorded Confirmed Type cyanocobalamin (vitamin B-12) 1,000 mcg sublingual QPM #30 tabs 03/08/19 10/02/24 History 1,000 mcg sublingual tablet cholecalciferol (vitamin D3) 25 2,000 unit PO QPM 08/02/22 10/02/24 History mcg (1,000 unit) capsule rizatriptan 10 mg disintegrating 10 mg PO Q2H PRN migraine headache 08/04/23 10/02/24 Rx tablet #12 tabs estradiol 0.075 mg/24 hr 1 patch transdermal .COMPLEX #24 ea 04/28/24 08/13/24 Rx semiweekly transdermal patch meclizine 25 mg tablet 25 mg PO DAILY PRN history of 06/04/24 10/02/24 Rx vertigo #30 tabs ocrelizumab 30 mg/mL intravenous 600 mg (20 mL) IV Q6MO 6 months 06/08/24 10/02/24 Rx solution (Ocrevus) #20 mL ocrelizumab 30 mg/mL intravenous 600 mg (20 mL) IV .COMPLEX #20 mL 06/18/24 10/02/24 Rx solution (Ocrevus) pantoprazole 40 mg tablet,delayed 40 mg PO DAILY #90 tabs 09/16/24 10/02/24 Rx release albuterol sulfate 90 mcg/actuation 1 - 2 puff inhalation Q4H PRN 09/27/24 10/02/24 Rx aerosol inhaler extrinsic asthma #8.5 grams tirzepatide (weight loss) 7.5 7.5 mg (0.5 mL) subcut .weekly #2 03/21/25 03/22/25 Rx mg/0.5 mL subcutaneous pen mL injector (Zepbound) Patient History Medical History Dizziness 05/27/22 History of anesthesia reaction difficulty waking during last cystoscopy 11/2023 History of urinary tract infection History of COVID-19 Multiple, most recent summer 2022, symptoms resolved Pap smear of cervix with high grade squamous intraepithelial lesion (HGSIL) 2011 Surgical History S/P urological surgery (02/2024) cystoscopy / bulkamid procedure History of rotator cuff surgery (01/2024) left History of carpal tunnel release (2019) Left hand S/P tonsillectomy S/P LEEP (2011) For HGSIL, colposcopy w/ LEEP, neg bx, neg path on LEEP History of robot-assisted laparoscopic hysterectomy History of colposcopy (2006) LGSIL on 04/29/07 pap 11/2011 HGSIL pap, neg colpo bx, neg path on LEEP H/O tubal ligation History of appendectomy Family History Grandmother (Paternal) Breast cancer Cervical cancer Uterine cancer Ovarian cancer Family/Other Cerebral arterial aneurysm Father Diabetes Hypercholesteremia Mother Hypertension Grandfather (Maternal) Prostate cancer Denies family history of Colorectal cancer Social History Smoking Status: Never smoker Second Hand Exposure: No; Do You Dip or Chew Tobacco: No; Hx Alcohol Use: No Hx Substance Use: No Preferred Language: Irish Communication Ability: Effective Visual Impairment: No Limitations Hearing Ability: Normal Beauty Operator Required: No Beliefs That Will Affect Care: None marital status: Single Current Living Situation: Family Current Living Situation Comment: Daughters w/ her current occupational status: employed current occupation: [employer] How many Children do You have: 2 Feels Safe at Home: Yes Childhood Exposure to Second-Hand Smoke: No Diet: low carbohydrate Diet Comment: no soda, no fast food caffeine: Yes (coffee) during the past year weight has: remained stable Dental Care, Regularly: Yes Physical Activity Frequency: Daily Physical Activity Frequency Comment: walking 2 miles daily, cardio at home Seatbelt Use: always Sunscreen Use: Yes Assistive Devices: None Review of Systems Review of Systems: All systems reviewed & are unremarkable except as noted in HPI & below Physical Exam Constitutional: WD/WN, vitals as above Eyes: + anicteric sclerae ENMT: Ears: no hearing impairment and no external ear abnormality Sublingual jaundice is absent Neck: trachea midline Respiratory: normal respiratory effort; no respiratory distress and no labored breathing Cardiovascular: Rate/Rhythm: regular rate and regular rhythm Gastrointestinal (Abdomen): Abdomen is soft and nonrigid. It is nondistended. There is pain with palpation of the right upper quadrant with a positive Diop sign. Musculoskeletal: No calf tenderness Skin: no jaundice Neurologic: moves all extremities Psychiatric: A+Ox3, euthymic affect Results & Data Vital Signs (Past 12 Hours) Vital Signs Temp Pulse Pulse Resp BP BP Pulse Ox 10/02/24 21:00 82 16 114/84 96 10/02/24 19:26 81 16 122/68 96 10/02/24 19:08 80 16 117/62 98 10/02/24 18:40 78 13 98 10/02/24 18:40 76 16 144/88 H 98 10/02/24 18:40 98 10/02/24 18:28 82 10/02/24 18:14 36.6 C 82 18 169/91 H 100 O2 Del Method 10/02/24 21:00 Room Air 10/02/24 19:26 Room Air 10/02/24 19:08 Room Air 10/02/24 18:40 Room Air 10/02/24 18:40 Room Air 10/02/24 18:40 Room Air 10/02/24 18:28 10/02/24 18:14 Room Air PG Care Time/CCT Total # of Minutes Spent Total Time Spent with Patient: Total time spent is greater than 50% in coordination of care (as documented) at patient's floor/unit and/or counseling patient: Coding Level of Care Code 69007 IN/OBS CONSULT LVL 5,80M Diagnoses Acute cholecystitis K81.0
--- NOTE | 2024-10-02 21:32 | History & Physical Report ---
Date of Service October 02, 2024 Assessment & Plan (1) Acute cholecystitis: (2) Chest pain: (3) Multiple sclerosis: (4) GERD (gastroesophageal reflux disease): Admission and Anticipated Discharge Date Admission Date: 43yo female with history of HLP, GERD, MS presenting with acute onset chest pressure around 17:00. Patient now with RUQ abdominal pain and ongoing nausea. RUQUS performed, formal read pending, preliminary read with stones and findings concerning for acute cholecystitis. #Acute cholecystitis -Admit to medical with telemetry -Keep NPO LR at 100 mL/h x 2 L -Cefoxitin 1gm IV q 6 -Morphine PRN Zofran as needed nausea Repeat CBC, CMP and lipase in the morning General Surgery consultation appreciated Possible OR in the morning for cholecystectomy #Chest pain - Acute onset chest pain which has now progressed to right upper quadrant pain. EKG with no acute ischemic changes. Troponin = 3.1. Patient with low risk heart score. Hemodynamically stable with normal oxygenation on RA - PERC score=0 Telemetry monitoring Trend troponin every 6 hours #Multiple sclerosis Well-controlled.patient receives ocrelizumab injections. Last July. Due for 11 January. #GERD Protonix 40 mg IV daily F/E/N -LR at 100 mL/h x 2 L, potassium repletion with 60 mEq p.o., repeat blood work in the morning, n.p.o. after midnight ProphylaxisSCDs and GEORGIE stockings Codefull per discussion with patient Dispositionadmit to medical with telemetry History of Present Illness Chief Complaint: chest pain Primary Care Provider: DO Shannon Masonman is a 43yo female with history of MS on Ocrelizumab injections q 6 months (last in July 2024), GERD and HLP presenting from home with acute onset chest pain. Patient was resting around 17:00 when she developed acute onset of severe substernal chest discomfort . She took two 81mg ASA with no improvement in pain. Pain was non-radiating, non-exertional, non-pleuritic. She had nausea as well as some shortness of breath and diaphoresis. Her pain persisted until given Morphine in the ER. In the ER she developed fairly severe RUQ abdominal pain. Ongoing nausea. No additional complaints at this time. ER Course: ASA Cefoxitin Morphine Zofran Phenergan Allergies Allergy/AdvReac Type Severity Reaction Status Date / Time ferric subsulfate Allergy Unknown MONSEL'S Verified 08/13/24 10:03 SOLUTION-- VOMITTING, SEVERE STOMACH PAIN mustard AdvReac Intermediate Abdominal Verified 08/13/24 10:03 cramps Penicillins AdvReac Intermediate Severe N/V Verified 08/13/24 10:03 Home Medications Medication Instructions Recorded Confirmed Type cyanocobalamin (vitamin B-12) 1,000 mcg sublingual QPM #30 tabs 03/08/19 10/02/24 History 1,000 mcg sublingual tablet cholecalciferol (vitamin D3) 25 2,000 unit PO QPM 08/02/22 10/02/24 History mcg (1,000 unit) capsule rizatriptan 10 mg disintegrating 10 mg PO Q2H PRN migraine headache 08/04/23 10/02/24 Rx tablet #12 tabs estradiol 0.075 mg/24 hr 1 patch transdermal .COMPLEX #24 ea 04/28/24 08/13/24 Rx semiweekly transdermal patch meclizine 25 mg tablet 25 mg PO DAILY PRN history of 06/04/24 10/02/24 Rx vertigo #30 tabs ocrelizumab 30 mg/mL intravenous 600 mg (20 mL) IV Q6MO 6 months 06/08/24 10/02/24 Rx solution (Ocrevus) #20 mL ocrelizumab 30 mg/mL intravenous 600 mg (20 mL) IV .COMPLEX #20 mL 06/18/24 10/02/24 Rx solution (Ocrevus) pantoprazole 40 mg tablet,delayed 40 mg PO DAILY #90 tabs 09/16/24 10/02/24 Rx release albuterol sulfate 90 mcg/actuation 1 - 2 puff inhalation Q4H PRN 09/27/24 10/02/24 Rx aerosol inhaler extrinsic asthma #8.5 grams tirzepatide (weight loss) 7.5 7.5 mg (0.5 mL) subcut .weekly #2 10/01/24 10/02/24 Rx mg/0.5 mL subcutaneous pen mL injector (Zepbound) Past Med/Surg History Problem List Right upper quadrant abdominal pain (Acute) Chest pain (Acute) Acute cholecystitis (Acute) Cholelithiasis (Acute) Hyperlipidemia Multiple sclerosis Mixed urge and stress incontinence Prediabetes Incomplete bladder emptying Mixed urge and stress incontinence Urinary Incontinence CMC (carpometacarpal) synovitis GERD (gastroesophageal reflux disease) Anxiety and depression Extrinsic asthma Headache, migraine Insomnia Vitamin B12 deficiency Vitamin D deficiency Medical History Dizziness 05/27/22 History of anesthesia reaction difficulty waking during last cystoscopy 11/2023 History of urinary tract infection History of COVID-19 Multiple, most recent summer 2022, symptoms resolved Pap smear of cervix with high grade squamous intraepithelial lesion (HGSIL) 2011 Surgical History S/P urological surgery (02/2024) cystoscopy / bulkamid procedure History of rotator cuff surgery (01/2024) left History of carpal tunnel release (2019) Left hand S/P tonsillectomy S/P LEEP (2011) For HGSIL, colposcopy w/ LEEP, neg bx, neg path on LEEP History of robot-assisted laparoscopic hysterectomy History of colposcopy (2006) LGSIL on 04/29/07 pap 11/2011 HGSIL pap, neg colpo bx, neg path on LEEP H/O tubal ligation History of appendectomy Family History Grandmother (Paternal) Breast cancer Cervical cancer Uterine cancer Ovarian cancer Family/Other Cerebral arterial aneurysm Father Diabetes Hypercholesteremia Mother Hypertension Grandfather (Maternal) Prostate cancer Denies family history of Colorectal cancer Social History Smoking Status: Never smoker Second Hand Exposure: No; Do You Dip or Chew Tobacco: No; Hx Alcohol Use: No Hx Substance Use: No Preferred Language: Albanian Communication Ability: Effective Visual Impairment: No Limitations Hearing Ability: Normal Instructional Support Assistant Required: No Beliefs That Will Affect Care: None marital status: Single Current Living Situation: Family Current Living Situation Comment: Daughters w/ her current occupational status: employed current occupation: [employer] How many Children do You have: 2 Feels Safe at Home: Yes Childhood Exposure to Second-Hand Smoke: No Diet: low carbohydrate Diet Comment: no soda, no fast food caffeine: Yes (coffee) during the past year weight has: remained stable Dental Care, Regularly: Yes Physical Activity Frequency: Daily Physical Activity Frequency Comment: walking 2 miles daily, cardio at home Seatbelt Use: always Sunscreen Use: Yes Assistive Devices: None Review of Systems Review of Systems: All systems reviewed & are unremarkable except as noted in HPI & below Physical Exam Physical Exam: General: patient resting comfortably, NAD, non-toxic in appearance, AA&O x 4 Skin: warm, dry, intact, no rashes or lesions HEENT: NC/AT, PERRL, EOMI, anicteric sclera, conjunctiva without injection, external ear normal to inspection and nontender, nares patent, moist mucus membranes, dentition intact, no oropharyngeal lesions, neck supple, trachea midline, no LAD, no thyromegaly, no JVD Heart: +S1/S2, regular, no m/r/g Lungs: equal air entry bilaterally, no rales/rhonchi/wheezes Abd: +BS, soft, ND, tenderness in the RUQ with some voluntary guarding on exam, no masses/organomegaly/ascites Ext: warm, 2+ pulses in UE/LE bilaterally, no clubbing/cyanosis or edema Neuro: nonfocal, patient AA&O x 4, speech intact, no facial droop, moving all extremities on command with equal strength 5/5 Results & Data Results & Data Vital Signs (Past 12 Hours) Vital Signs Temp Pulse Pulse Resp BP BP Pulse Ox 10/02/24 21:00 82 16 114/84 96 10/02/24 19:26 81 16 122/68 96 10/02/24 19:08 80 16 117/62 98 10/02/24 18:40 78 13 98 10/02/24 18:40 76 16 144/88 H 98 10/02/24 18:40 98 10/02/24 18:28 82 10/02/24 18:14 36.6 C 82 18 169/91 H 100 O2 Del Method 10/02/24 21:00 Room Air 10/02/24 19:26 Room Air 10/02/24 19:08 Room Air 10/02/24 18:40 Room Air 10/02/24 18:40 Room Air 10/02/24 18:40 Room Air 10/02/24 18:28 10/02/24 18:14 Room Air Laboratory Results Laboratory Results WBC 10.66 K/ul (4.8-10.8) 10/02/24 18:23 RBC 5.21 M/uL (4.20-5.40) 10/02/24 18:23 Hgb 15.4 g/dl (12.0-16.0) 10/02/24 18:23 Hct 44.8 % (37.0-47.0) 10/02/24 18:23 MCV 86.0 fL (80.0-100.0) 10/02/24 18: MCH 29.6 pg (25.0-34.0) 10/02/24 18: MCHC 34.4 g/dL (32.0-36.0) 10/02/24 18:23 RDW Std Deviation 40.2 fL (36.4-46.3) 10/02/24 18: RDW Coeff of Mauricio 13.0 % (11.5-14.5) 10/02/24 18: Plt Count 393 K/uL (130-400) 10/02/24 18:23 MPV 10.8 fL (9.4-12.4) 10/02/24 18:23 Immature Gran % (Auto) 0.3 % 10/02/24 18:23 Neut % (Auto) 57.5 % 10/02/24 18:23 Lymph % (Auto) 29.7 % 10/02/24 18:23 [place] % (Auto) 10.0 % 10/02/24 18:23 Eos % (Auto) 2.0 % 10/02/24 18:23 Baso % (Auto) 0.5 % 10/02/24 18:23 Neut # (Auto) 6.13 K/uL (1.40-6.50) 10/02/24 18:23 Lymph # (Auto) 3.17 K/uL (1.20-3.40) 10/02/24 18:23 [place] # (Auto) 1.07 K/uL (0.11-0.59) H 10/02/24 18:23 Eos # (Auto) 0.21 K/uL (0.00-0.50) 10/02/24 18:23 Baso # (Auto) 0.05 K/uL (0.00-0.20) 10/02/24 18:23 Immature Gran # (Auto) 0.03 K/uL (0.01-0.20) 10/02/24 18:23 PT 11.3 Seconds (9.0-12.0) 10/02/24 18:23 INR 1.0 (0.9-1.1) 10/02/24 18:23 APTT 31 Seconds (21-31) 10/02/24 18:23 PTT Ratio 1.2 10/02/24 18:23 Sodium 142 mmol/L (136-145) 10/02/24 18:23 Potassium 3.4 mmol/L (3.5-5.1) L 10/02/24 18:23 Chloride 106 mmol/L (98-107) 10/02/24 18:23 Carbon Dioxide 24 mmol/L (21-32) 10/02/24 18:23 Anion Gap 12 (3-11) H 10/02/24 18:23 BUN 11 mg/dl (6-23) 10/02/24 18: Creatinine 0.70 mg/dl (0.6-1.2) 10/02/24 18: Est Cr Clr Drug Dosing 108.0 ml/min 10/02/24 18:23 eGFR 109.30 10/02/24 18:23 BUN/Creatinine Ratio 15.7 (10-20) 10/02/24 18:23 Glucose 118 mg/dl (70-99(Fasting)) H 10/02/24 18:23 Calcium 9.7 mg/dl (8.6-10.3) 10/02/24 18:23 Total Bilirubin 0.5 mg/dl (0.2-1.0) 10/02/24 18:23 AST 42 U/L (13-39) H 10/02/24 18:23 ALT 33 U/L (7-52) 10/02/24 18:23 Alkaline Phosphatase 74 U/L (34-104) 10/02/24 18:23 Troponin I High Sens 3.1 pg/ml (0-14) 10/02/24 18: Total Protein 8.1 gm/dl (6.0-8.3) 10/02/24 18:23 Albumin 4.8 gm/dl (3.4-5.0) 10/02/24 18:23 Globulin 3.3 gm/dl (2.5-4.0) 10/02/24 18:23 Albumin/Globulin Ratio 1.5 (0.9-2) 10/02/24 18:23 Lipase 28 U/L (11-82) 10/02/24 18:23 Impressions Chest X-Ray 10/02/24 18:27 Chest radiograph, one view History: Chest pain Comparison: September 28, 2020 Findings: Single AP view of the chest performed. No focal consolidation or pleural effusion. No pneumothorax. The cardiomediastinal silhouette is within normal limits. Normal pulmonary vascularity. No evidence for lymphadenopathy. No visualized bony or soft tissue abnormality. Impression: Normal chest radiograph Electronically signed by García Vance 10-02-2024 8:01 PM ECG Additional Comments: EKG with NSR at 80bpm, normal ais, EO=400, QRS=82, HUa=354, no acute ischemic changes Code Status & VTE Plan VTE Prophylaxis Plan VTE Prophylaxis will be ordered: Yes PG Care Time/CCT Total # of Minutes Spent Total Time Spent with Patient: Total time spent is greater than 50% in coordination of care (as documented) at patient's floor/unit and/or counseling patient: Coding Level of Care Code 33455 INT INP/OBS CARE 3/75MIN Diagnoses Acute cholecystitis K81.0 Chest pain R07.9 Multiple sclerosis G35 GERD (gastroesophageal reflux disease) K21.9
[2024-10-03] MEDS ORDERED: ALBUTEROL HFA 8 GM INHALER INH PRN (00:02)
[2024-10-03] MEDS ORDERED: ACETAMINOPHEN 325 MG TAB PO PRN (00:02)
[2024-10-03] MEDS: LACTATED RINGER'S 1,000 ML IV SCH (00:17)
[2024-10-03] MEDS: cefOXitin 1,000 MG in DEXTROSE 5 % MINI-B 50 ML IV SCH (00:23)
[2024-10-03] MEDS: POTASSIUM CHLORIDE CRTAB 20 MEQ TABCR PO STA (00:42)
--- NOTE | 2024-10-03 00:49 | Ultrasound Report ---
Exam(s): US GALLBLADDER EXAM: US Abdomen Limited, Right Upper Quadrant CLINICAL HISTORY: RUQ pain. TECHNIQUE: Real-time ultrasound of the right upper quadrant with image documentation. COMPARISON: CT abdomen 09/01/2012. FINDINGS: Liver: 16.7 cm length. No mass. Hepatopetal flow in the main portal vein. No intrahepatic bile duct dilation. Gallbladder: Mildly distended. Top normal caliber gallbladder wall. Multiple small layering gallstones and sludge. Common bile duct: 4 mm. No stones. No dilation. Pancreas: Unremarkable as visualized. Right kidney: Unremarkable. No stones. No solid mass. No hydronephrosis. IMPRESSION: Cholelithiasis with top normal wall thickening. Positive sonographic Diop sign. Findings are suspicious for acute cholecystitis. No evidence for biliary obstruction. Electronically signed by: Mani Sebastian M.D. 10/03/24 00:48 AM
[2024-10-03 00:51] LABS: Magnesium 2.1 mg/dl (1.7-2.4)
[2024-10-03] MEDS: POTASSIUM CHLORIDE 20 MEQ/15 ML UDC PO STA (00:52)
[2024-10-03 00:58] LABS: Troponin I High Sensitivity 3.3 pg/ml (0-14)
[2024-10-03] MEDS: POTASSIUM CHLORIDE PWD 20 MEQ PACK PO ONE (01:11)
[2024-10-03] MEDS: MoRPHine SULFATE 2 MG/ML CARP IV PRN (01:14)
[2024-10-03] MEDS: cefOXitin 2,000 MG in DEXTROSE 5 % MINI-B 50 ML IV SCH (04:23)
[2024-10-03 05:53] LABS: Hematocrit (blood only) 41.2 % (37.0-47.0); Hemoglobin 13.9 g/dl (12.0-16.0); Mean Corpuscular Hemoglobin 29.7 pg (25.0-34.0); Mean Corpuscular Hgb Conc 33.7 g/dL (32.0-36.0); Mean Platelet Volume 10.5 fL (9.4-12.4); Platelet Count 345 K/uL (130-400); RDW Coefficient of Variation 12.9 % (11.5-14.5); RDW Standard Deviation 41.5 fL (36.4-46.3); Red Blood Count 4.68 M/uL (4.20-5.40); White Blood Count 8.76 K/ul (4.8-10.8)
[2024-10-03 06:11] LABS: BUN Creatinine Ratio 11.8 (10-20); Bilirubin Direct 0.1 mg/dl (0-0.2); Bilirubin,Total 0.6 mg/dl (0.2-1.0); Calcium 8.9 mg/dl (8.6-10.3); Creatinine Clr Calc Pharmacy 86.2 ml/min; Potassium 4.3 mmol/L (3.5-5.1); Total Protein 6.7 gm/dl (6.0-8.3)
[2024-10-03] MEDS: PANTOprazole 40 MG/10 ML SYR IV SCH (08:12)
[2024-10-03] MEDS: MoRPHine SULFATE 4 MG/ML 1 ML CARP\\VIAL IV PRN (08:12)
[2024-10-03] MEDS: ONDANSETRON INJ 2 MG/ML 2 ML VIAL IV PRN (08:13)
--- NOTE | 2024-10-03 08:28 | Surgery Progress Note ---
Date of Service October 03, 2024 Assessment & Plan (1) Acute cholecystitis: Plan: cholelithiasis with suspected cholecystitis. AST and ALT slightly up today, however bilirubin normal and no CBD dilation on ultrasound. plan for laparoscopic cholecystectomy with possible cholangiogram risks discussed to include but not limited to bleeding, infection, retained stone, bile leak, open surgery, damage to surrounding structures including bile duct, need for future or more extensive surgery, failure to treat symptoms, and risks of anesthesia. Monitor LFTs, potential discharge tomorrow if doing well (2) Multiple sclerosis: (3) Prediabetes: Admission and Anticipated Discharge Date Admission Date: October 02, 2024 Subjective Admitted with cholecystitis. Did not sleep well overnight, but pain is better than yesterday. Physical Exam Constitutional: WD/WN, vitals as above + obese Respiratory: normal respiratory effort, lungs clear to auscultation Cardiovascular: RRR, no murmur, no edema Gastrointestinal (Abdomen): Inspection/Auscultation: + abdominal surgical scar Percussion/Palpation: + abdomen tender (Mild right upper quadrant tenderness) and abdomen soft; no guarding and abdomen not rigid Results & Data Vital Signs (Past 12 Hours) Vital Signs Temp Pulse Pulse Resp BP BP Pulse Ox 10/03/24 07:59 36.7 C 74 18 125/79 96 10/03/24 07:20 74 10/03/24 04:00 36.6 C 67 18 100/64 96 10/03/24 00:26 71 10/03/24 00:02 36.6 C 71 18 118/65 96 10/02/24 23:46 77 18 120/74 97 10/02/24 22:36 67 14 103/69 94 10/02/24 22:24 67 10/02/24 21:00 82 16 114/84 96 O2 Del Method 10/03/24 07:59 Room Air 10/03/24 07:20 10/03/24 04:00 Room Air 10/03/24 00:26 10/03/24 00:02 Room Air 10/02/24 23:46 Room Air 10/02/24 22:36 Room Air 10/02/24 22:24 10/02/24 21:00 Room Air Laboratory Results Laboratory Results - last 24 hr 10/02/24 10/03/24 10/03/24 18:23 00:20 05:37 WBC 10.66 8.76 RBC 5.21 4.68 Hgb 15.4 13.9 Hct 44.8 41.2 MCV 86.0 88.0 MCH 29.6 29.7 MCHC 34.4 33.7 RDW Std Deviation 40.2 41.5 RDW Coeff of Mauricio 13.0 12.9 Plt Count 393 345 MPV 10.8 10.5 Immature Gran % (Auto) 0.3 Neut % (Auto) 57.5 Lymph % (Auto) 29.7 [place] % (Auto) 10.0 Eos % (Auto) 2.0 Baso % (Auto) 0.5 Neut # (Auto) 6.13 Lymph # (Auto) 3.17 [place] # (Auto) 1.07 H Eos # (Auto) 0.21 Baso # (Auto) 0.05 Immature Gran # (Auto) 0.03 PT 11.3 INR 1.0 APTT 31 PTT Ratio 1.2 Sodium 142 141 Potassium 3.4 L 4.3 D Chloride 106 110 H Carbon Dioxide 24 27 Anion Gap 12 H 4 BUN 11 9 Creatinine 0.70 0.76 Est Cr Clr Drug Dosing 108.0 86.2 eGFR 109.30 99.03 BUN/Creatinine Ratio 15.7 11.8 Glucose 118 H 90 Calcium 9.7 8.9 Magnesium 2.1 Total Bilirubin 0.5 0.6 Direct Bilirubin 0.1 AST 42 H 88 H ALT 33 95 H Alkaline Phosphatase 74 88 Troponin I High Sens 3.1 3.3 Total Protein 8.1 6.7 Albumin 4.8 4.0 Globulin 3.3 Albumin/Globulin Ratio 1.5 Lipase 28 15 Diagnostic Findings Chest X-Ray 10/02/24 18:27 Chest radiograph, one view History: Chest pain Comparison: September 28, 2020 Findings: Single AP view of the chest performed. No focal consolidation or pleural effusion. No pneumothorax. The cardiomediastinal silhouette is within normal limits. Normal pulmonary vascularity. No evidence for lymphadenopathy. No visualized bony or soft tissue abnormality. Impression: Normal chest radiograph Electronically signed by García Vance 10-02-2024 8:01 PM Gallbladder Ultrasound 10/02/24 18:29 Exam(s): US GALLBLADDER EXAM: US Abdomen Limited, Right Upper Quadrant CLINICAL HISTORY: RUQ pain. TECHNIQUE: Real-time ultrasound of the right upper quadrant with image documentation. COMPARISON: CT abdomen 09/01/2012. FINDINGS: Liver: 16.7 cm length. No mass. Hepatopetal flow in the main portal vein. No intrahepatic bile duct dilation. Gallbladder: Mildly distended. Top normal caliber gallbladder wall. Multiple small layering gallstones and sludge. Common bile duct: 4 mm. No stones. No dilation. Pancreas: Unremarkable as visualized. Right kidney: Unremarkable. No stones. No solid mass. No hydronephrosis. IMPRESSION: Cholelithiasis with top normal wall thickening. Positive sonographic Diop sign. Findings are suspicious for acute cholecystitis. No evidence for biliary obstruction. Electronically signed by: Mani Sebastian M.D. 10/03/24 00:48 AM PG Care Time/CCT Total # of Minutes Spent Total Time Spent with Patient: Total time spent is greater than 50% in coordination of care (as documented) at patient's floor/unit and/or counseling patient: Coding Level of Care Code 72700 SUB INP/OBS CARE MIN Diagnoses Acute cholecystitis K81.0 Multiple sclerosis G35 Prediabetes R73.03
--- NOTE | 2024-10-03 08:39 | Electrocardiogram Report ---
Test Reason : Blood Pressure : */* mmHG Vent. Rate : 80 BPM Atrial Rate : 80 BPM P-R Int : 158 ms QRS Dur : 82 ms QT Int : 408 ms P-R-T Axes : 62 48 44 degrees QTcB Int : 470 ms Normal sinus rhythm Normal ECG When compared with ECG of 28-Sep-2020 15:47, No significant change was found Confirmed by Earle Acuña ([id number]) on 10/03/2024 8:39:20 AM Referred By: REFERRED SELF Confirmed By: Earle Acuña
--- NOTE | 2024-10-03 08:50 | Hospitalist Progress Note ---
<Statement entered by Melonie Daly MD - 10/03/24 19:06> I have reviewed vital signs, chart notes, labs and imaging. I have personally seen, evaluated and examined the patient. I have also discussed the management of the patient with the ELISHA and I agree with the exam findings documented in the history and physical examination and the documented assessment and plan unless otherwise stated below. I saw Shannon this morning and she had ongoing right upper quadrant pain mostly on her right side laterally and epigastric area, her right upper quadrant is tender to palpation there is no generalized tenderness no rebound rigidity or guarding bowel tones are present no leukocytosis on CBC and no fever overnight LFTs remarkable for mild elevation of AST/ALT in the 100s without elevation of bilirubin or alk phos continue cefoxitin for acute cholecystitis, plan for lap sarbjit today should be able to discharge home tomorrow Date of Service October 03, 2024 Assessment & Plan (1) Acute cholecystitis: (2) Chest pain: (3) GERD (gastroesophageal reflux disease): (4) Headache, migraine: (5) Multiple sclerosis: Plan Patient is a 43-year-old female with past medical history of multiple sclerosis, migraine headaches, hyperlipidemia, prediabetes, extrinsic asthma, incontinence, anxiety and depression, vitamin B12 and D deficiency who is currently admitted for gallstones and acute cholecystitis. She presented to the ED yesterday with substernal chest pain/epigastric pain. She has family history for heart disease, she thought she was having a heart attack. She had a positive Diop sign on physical exam, cardiac workup negative. Labs revealed mild hypokalemia and potassium supplementation was given. She had ultrasound of the gallbladder which revealed presence of gallstones and sludge, mildly distended gallbladder. Biliary duct without stones or dilation. She is scheduled for lap cholecystectomy today. #Acute Cholecystitis -Scheduled for laparoscopic cholecystectomy today -NPO -Labs WNL with exception of mildly elevated AST and ALT - no leukocytosis, hypokalemia resolved -Continue IV Morphine 4mg Q3H PRN and IV Zofran 4mg Q6H PRN -Antibiotic prophylaxis with Cefoxitin 2g IV -Fluid Maintenance with IV Lactated Ringers -AM labs ordered, recheck LFTa #Chest pain - substernal/epigastric region. - likely secondary to cholecystitis/GERD -Chest xray normal -ECG NSR -Troponin x 2 negative #GERD - continue protonix 40mg IV #Headache, Migraine - no nsaids due to pre op status - will add 1 dose of 1 g IV acetaminophen - note AST/ALT elevation is mild in severity, no severe hepatic impairment or liver disease to contraindicate useage #Multiple Sclerosis - due for ocrelizumab infusion in January - no current symptoms DVT prophylaxis: SCDs and GEORGIE stockings Code Status: Full Code Admission and Anticipated Discharge Date Admission Date: October 02, 2024 Subjective She currently reports that she is experiencing "a really bad headache." Pain is located at the top of her forehead and is nonradiating. She believes her pain is secondary to being n.p.o. She reports continued pain in the substernal/epigastric region that she describes as pressure. She states pain is not worsened from yesterday. She has had associated nausea which improved with Zofran. She denies blurry vision, dizziness, lightheadedness, presyncope, pain in jaw/upper back/left arm, cough, shortness of breath, wheezing, leg swelling, vomiting, diarrhea, constipation, dysuria, blood in stool or urine, weakness, numbness or tingling. She was given 4 mg IV morphine about 30 minutes ago without relief in headache, did somewhat help abdominal pain, but it does return in waves where pain is more severe. She states that she had visit with the surgeon, will likely go up for surgery around noon. She states that she will likely stay overnight to recheck LFTs. She has history of MS, reports symptoms have significantly improved with her current infusion treatment, due in January. She reports less fatigue/numbness/tingling. She has no additional complaints or concerns Review of Systems Review of Systems: See HPI Physical Exam Physical Exam: General: no acute distress; non-toxic appearing; obese; cooperative; (+) appears uncomfortable/in pain HEENT: normocephalic, atraumatic; no scleral icterus; PERRLA w/ EOMs intact; vision and hearing grossly intact Neck: supple; no lymphadenopathy; trachea midline Skin: warm, dry without signs of tenting; no cyanosis; no rashes, bruising, lesions, or erythema noted CV: chest wall NTP; RRR; S1/S2 normal; no murmurs/rubs/gallops; pulses intact and symmetric at radial, DP, and PT Lungs: no acute respiratory distress; symmetrical chest wall expansion; clear breath sounds across all lung fraga w/o adventitious sounds; no wheezing, ra les, rhonchi ABD: Abdomen is soft and nondistended. Normoactive bowel sounds in all 4 quadrants. (+) RUQ and epigastric tenderness present. Positive Diop sign (+) Guarding over RUQ; no rebound tenderness MSK: no tics or fasciculations; no edema noted in the LEs b/l, nonerythematous Neuro: A&Ox3; normal mood and affect; fluent speech; no focal deficits; sensation grossly intact in the LEs b/l Results & Data Results & Data Vital Signs (Past 12 Hours) Vital Signs Weight, temperature, heart rate, respiratory rate, blood pressure, oxygen saturations reviewed Temp Pulse Pulse Resp BP BP Pulse Ox 10/03/24 07:59 98.1 F 74 18 125/79 96 10/03/24 07:20 74 10/03/24 04:00 97.9 F 67 18 100/64 96 10/03/24 00:26 71 10/03/24 00:02 97.9 F 71 18 118/65 96 10/02/24 23:46 77 18 120/74 97 10/02/24 22:36 67 14 103/69 94 10/02/24 22:24 67 10/02/24 21:00 82 16 114/84 96 O2 Del Method 10/03/24 07:59 Room Air 10/03/24 07:20 10/03/24 04:00 Room Air 10/03/24 00:26 10/03/24 00:02 Room Air 10/02/24 23:46 Room Air 10/02/24 22:36 Room Air 10/02/24 22:24 10/02/24 21:00 Room Air Laboratory Results CBC, CMP, lipase reviewed Diagnostic Findings Chest x-ray and ultrasound gallbladder reviewed ECG Additional Comments: ECG reviewed PG Care Time/CCT Total # of Minutes Spent Total Time Spent with Patient: Total time spent is greater than 50% in coordination of care (as documented) at patient's floor/unit and/or counseling patient: Coding Level of Care Code 46576 SUB INP/OBS CARE 2/35MIN Diagnoses Acute cholecystitis K81.0 Chest pain R07.9 GERD (gastroesophageal reflux disease) K21.9 Headache, migraine G43.909 Multiple sclerosis G35
[2024-10-03] MEDS: ACETAMINOPHEN 1,000 MG/100 ML VIAL IV STA (09:43)
[2024-10-03] MEDS ORDERED: ROCURONIUM BROMIDE 10 MG/ML 5 ML VIAL IV ONE (10:02)
[2024-10-03] MEDS ORDERED: LIDOCAINE 2% 2 ML VIAL/AMP(20MG/ML) INFIL ONE (10:02)
[2024-10-03] MEDS ORDERED: PROPOFOL IV EMULSION 10 MG/ML 20 ML VIAL IV ONE (10:02)
[2024-10-03] MEDS ORDERED: ONDANSETRON INJ 2 MG/ML 2 ML VIAL ONE (10:04)
[2024-10-03] MEDS ORDERED: DEXAMETHASONE SOD INJ 4 MG/ML VIAL ONE ×2 (10:04)
[2024-10-03] MEDS ORDERED: MIDAZOLAM HCL 1 MG/ML 2ML VIAL ONE (11:41)
[2024-10-03] MEDS ORDERED: fentaNYL citrate PF 100 MCG/2 ML VIAL ONE ×2 (11:41→12:32)
--- NOTE | 2024-10-03 11:53 | Anesthesiology Consultation ---
Date of Service October 03, 2024 Assessment & Plan Chart Review Chart Review: Acceptable Risk for Surgery and Patient NOT seen in Pre Admission Testing Consults Requested none History Surgery Operation Date: 10/03/24 12:00 Proposed Procedures p Laparoscopic Cholecystectomy - Sergio Schneider DO, FACS Height/Weight Height: 5 ft Weight: 76.345 kg Allergies Allergy/AdvReac Type Severity Reaction Status Date / Time ferric subsulfate Allergy Unknown MONSEL'S Verified 08/13/24 10:03 SOLUTION-- VOMITTING, SEVERE STOMACH PAIN mustard AdvReac Intermediate Abdominal Verified 08/13/24 10:03 cramps Penicillins AdvReac Intermediate Severe N/V Verified 08/13/24 10:03 Medications Home Medications Medication Instructions Recorded Confirmed Last Taken cyanocobalamin (vitamin B-12) 1,000 mcg sublingual QPM #30 tabs 03/08/19 10/02/24 03/09/24 18:00 1,000 mcg sublingual tablet cholecalciferol (vitamin D3) 25 2,000 unit PO QPM 08/02/22 10/02/24 03/09/24 18:00 mcg (1,000 unit) capsule rizatriptan 10 mg disintegrating 10 mg PO Q2H PRN migraine headache 08/04/23 10/02/24 03/09/24 tablet #12 tabs estradiol 0.075 mg/24 hr 1 patch transdermal .COMPLEX #24 ea 04/28/24 08/13/24 Unknown semiweekly transdermal patch meclizine 25 mg tablet 25 mg PO DAILY PRN history of 06/04/24 10/02/24 Unknown vertigo #30 tabs ocrelizumab 30 mg/mL intravenous 600 mg (20 mL) IV Q6MO 6 months 06/08/24 10/02/24 Unknown solution (Ocrevus) #20 mL ocrelizumab 30 mg/mL intravenous 600 mg (20 mL) IV .COMPLEX #20 mL 06/18/24 10/02/24 Unknown solution (Ocrevus) pantoprazole 40 mg tablet,delayed 40 mg PO DAILY #90 tabs 09/16/24 10/02/24 Unknown release albuterol sulfate 90 mcg/actuation 1 - 2 puff inhalation Q4H PRN 09/27/24 10/02/24 Unknown aerosol inhaler extrinsic asthma #8.5 grams tirzepatide (weight loss) 7.5 7.5 mg (0.5 mL) subcut .weekly #2 10/01/24 10/02/24 Unknown mg/0.5 mL subcutaneous pen mL injector (Zepbound) Active Medications Generic Name Dose Route Start Last Admin Trade Name Freq PRN Reason Stop Dose Admin Lactated Ringer's 1,000 mls @ 100 mls/hr 10/03/24 00:02 10/03/24 09:46 Lr IV 10/03/24 20:01 100 mls/hr .Q10H WIN Administration Pantoprazole Sodium 40 mg in 10 mls @ 5 mls/min 10/03/24 09:00 10/03/24 08:12 Protonix IV 11/02/24 08:59 5 mls/min DAILY WIN Administration Cefoxitin Sodium 2,000 mg/ 50 mls @ 120 mls/hr 10/03/24 04:00 10/03/24 10:10 Dextrose IV 10/13/24 03:59 Infused Q6H WIN Infusion Morphine Sulfate 2 mg 10/03/24 00:02 10/03/24 01:14 Morphine Sulfate 2 Mg/Ml Carp IV 10/17/24 00:01 2 mg Q3H PRN Administration Pain (1,2,3,4,5) & Pre PT Morphine Sulfate 4 mg 10/03/24 00:02 10/03/24 08:12 Morphine Sulfate 4 Mg/Ml 1 Ml Carp\Vial IV 10/17/24 00:01 4 mg Q3H PRN Administration Pain (6,7,8,9,10) Ondansetron HCl 4 mg 10/03/24 00:02 10/03/24 08:13 Ondansetron Inj 2 Mg/Ml 2 Ml Vial IV 11/02/24 00:01 4 mg Q6H PRN Administration Nausea And Vomiting Past Medical History Medical History Dizziness 05/27/22 History of anesthesia reaction difficulty waking during last cystoscopy 11/2023 History of urinary tract infection History of COVID-19 Multiple, most recent summer 2022, symptoms resolved Pap smear of cervix with high grade squamous intraepithelial lesion (HGSIL) 2011 Past Family History Family History Grandmother (Paternal) Breast cancer Cervical cancer Uterine cancer Ovarian cancer Family/Other Cerebral arterial aneurysm Father Diabetes Hypercholesteremia Mother Hypertension Grandfather (Maternal) Prostate cancer Denies family history of Colorectal cancer Past Surgical History Surgical History S/P urological surgery (02/2024) cystoscopy / bulkamid procedure History of rotator cuff surgery (01/2024) left History of carpal tunnel release (2019) Left hand S/P tonsillectomy S/P LEEP (2011) For HGSIL, colposcopy w/ LEEP, neg bx, neg path on LEEP History of robot-assisted laparoscopic hysterectomy History of colposcopy (2006) LGSIL on 04/29/07 pap 11/2011 HGSIL pap, neg colpo bx, neg path on LEEP H/O tubal ligation History of appendectomy Social History Smoking Status: Never smoker Do You Dip or Chew Tobacco: No Hx Alcohol Use: No Hx Substance Use: No substance use type: does not use Physical Exam Vital Signs Last Vital Signs Temp 36.8 C 10/03/24 11:07 Pulse 76 10/03/24 11:07 Resp 18 10/03/24 11:07 BP 118/79 10/03/24 11:07 Pulse Ox 96 10/03/24 11:07 O2 Del Method Room Air 10/03/24 11:07 Testing Laboratory Results 10/03/24 05:37 10/03/24 05:37 PT 11.3 Seconds (9.0-12.0) 10/02/24 18:23 INR 1.0 (0.9-1.1) 10/02/24 18:23 APTT 31 Seconds (21-31) 10/02/24 18:23
[2024-10-03] MEDS ORDERED: ePHEDrine sulfate 50 MG/ML AMP IV PRN (11:59)
[2024-10-03] MEDS ORDERED: ONDANSETRON INJ 2 MG/ML 2 ML VIAL IV PRN (11:59)
[2024-10-03] MEDS ORDERED: ATROPINE SULFATE 0.1 MG/ML 10ML SYR IV PRN (11:59)
[2024-10-03] MEDS ORDERED: PHENYLEPHRINE 100MCG/ML 5ML SYR ONE (12:29)
[2024-10-03] MEDS ORDERED: SUGAMMADEX SODIUM 200 MG/2 ML VIAL IV ONE (12:34)
[2024-10-03] MEDS ORDERED: KETOROLAC 30 MG/ML VIAL ONE (12:38)
[2024-10-03] MEDS: BUPIVACAINE 0.5 % 5 MG/1 ML MPF 30ML VIAL ONE (13:05)
--- NOTE | 2024-10-03 13:06 | Operative Report ---
PG Post Operative Report Pre & Post Diagnosis Operation Date: 10/03/24 12:00 Pre-Op Diagnosis: Acute cholecystitis Post-Op Diagnosis: Acute cholecystitis I identified the patient and participated in the time-out.: Yes Procedure Operation Date: 10/03/24 12:00 Actual Procedures p Laparoscopic Cholecystectomy(Not Applicable) - Sergio Schneider DO, FACS Surgeon Sergio Schneider DO, FACS [employer] Alexandrea Charles Estimated Blood Loss 10 Findings Consistent with Post-Op Diagnosis Acute cholecystitis. Critical view of safety obtained, cystic duct and artery doubly clipped and divided. Good hemostasis. Specimens Gallbladder Anesthesia Type General Complications none Disposition Accompanied Patient To Recovery: No Disposition: Recovery Room Indications 43-year-old female presented with signs symptoms of acute cholecystitis, plan for laparoscopic cholecystectomy. The risks of the procedure were discussed, all questions were answered, and the patient agreed to proceed with surgery as planned. Description of Procedure The patient was properly identified, consented, and taken to the operating room where she was placed in the supine position. General endotracheal anesthesia was induced. SCDs and a safety belt were placed. Preoperative antibiotics were administered. The patient's abdomen was prepped and draped in the standard sterile fashion. A surgical timeout was performed and all parties were in agreement that this was the correct patient and procedure to be performed and we continued as planned. An incision was made inferior and to the left of the umbilicus overlying the rectus muscle and the Veress needle was inserted. Saline drop test confirmed entry into the peritoneum. The abdomen was insufflated with carbon dioxide which the patient tolerated without incident. The abdomen was then entered using the Optiview technique and a 5 mm trocar. The laparoscope was inserted and no damage from initial trocar or Veress needle placement was noted, no gross abnormalities were noted within the 4 quadrants of the abdomen. An 11 mm port was placed in the subxiphoid position and two 5 mm ports were then placed in the right subcostal position. The patient was placed in reverse Trendelenburg position and rotated towards the left. The gallbladder was acutely inflamed with some edema around the gallbladder. The dome of the gallbladder was retracted towards the left upper quadrant and the infundibulum was retracted toward the right lower quadrant revealing Calot's triangle. Peritoneal attachments were taken down with electrocautery and blunt dissection. The cystic duct and artery were circumferentially dissected. A window of safety was obtained showing the cystic duct entering the gallbladder with no aberrant structures noted. The cystic duct and artery were doubly clipped and divided. The gallbladder was then lifted off the gallbladder fossa with electrocautery. The gallbladder was placed in an Endo Catch bag and removed through the subxiphoid port site. The right upper quadrant was irrigated and hemostasis was found to be good. 5 mm trochars were removed under direct visualization and the abdomen was allowed to collapse. The subxiphoid port site fascia was closed with 0 Vicryl suture utilizing the Eliecer-Rayne device prior to removal of the ports. The wound was irrigated, and the skin of all ports was closed with 4-0 Monocryl subcuticular sutures. Dermabond was placed over the wounds. The patient was extubated in the operating room and taken to the PACU where she recovered without apparent incident. All sponge, instrument and needle counts were correct at the conclusion of the procedure. The patient tolerated the procedure well. The nurse practitioner was present and scrubbed for the entirety of the case and was essential in positioning the patient, prepping and draping, retraction and exposure, driving the laparoscope, removal of the gallbladder, closure the incisions, and placement of the dressings. I attest to the content of the Intraoperative Record and any orders documented therein. Any exceptions are noted below.
[2024-10-03] MEDS: fentaNYL citrate PF 100 MCG/2 ML VIAL IV PRN (13:33)
--- NOTE | 2024-10-03 14:30 | Anesthesiology Progress Note ---
Date of Service October 03, 2024 Anesthesia Post Procedure Vital Signs Vital Signs: Temp Pulse Pulse Resp BP BP Pulse Ox 10/03/24 14:01 36.8 C 72 16 123/68 93 10/03/24 13:50 76 16 117/72 95 10/03/24 13:40 69 13 124/75 98 10/03/24 13:30 74 14 132/74 98 10/03/24 13:21 36.2 C L 76 12 133/80 96 10/03/24 11:07 36.8 C 76 18 118/79 96 10/03/24 07:59 36.7 C 74 18 125/79 96 10/03/24 07:20 74 10/03/24 04:00 36.6 C 67 18 100/64 96 10/03/24 00:26 71 10/03/24 00:02 36.6 C 71 18 118/65 96 10/02/24 23:46 77 18 120/74 97 10/02/24 22:36 67 14 103/69 94 10/02/24 22:24 67 10/02/24 21:00 82 16 114/84 96 10/02/24 19:26 81 16 122/68 96 10/02/24 19:08 80 16 117/62 98 10/02/24 18:40 78 13 98 10/02/24 18:40 76 16 144/88 H 98 10/02/24 18:40 98 10/02/24 18:28 82 10/02/24 18:14 36.6 C 82 18 169/91 H 100 O2 Del Method O2 Flow Rate 10/03/24 14:01 Room Air 0 10/03/24 13:50 Room Air 0 10/03/24 13:40 Oxymask 4 10/03/24 13:30 Oxymask 4 10/03/24 13:21 Oxymask 4 10/03/24 11:07 Room Air 10/03/24 07:59 Room Air 10/03/24 07:20 10/03/24 04:00 Room Air 10/03/24 00:26 10/03/24 00:02 Room Air 10/02/24 23:46 Room Air 10/02/24 22:36 Room Air 10/02/24 22:24 10/02/24 21:00 Room Air 10/02/24 19:26 Room Air 10/02/24 19:08 Room Air 10/02/24 18:40 Room Air 10/02/24 18:40 Room Air 10/02/24 18:40 Room Air 10/02/24 18:28 10/02/24 18:14 Room Air Pain Intensity Medial Chest: Pain Intensity: 2 Right Upper Abdomen: Pain Intensity: 4 Transfer of Care Handoff Completed per policy Notes Mental Status: alert / awake / arousable Patient Amnestic to Procedure: Yes Nausea / Vomiting: adequately controlled Pain: adequately controlled Airway Patency, RR, SpO2: stable & adequate BP & HR: stable & adequate Hydration State: stable & adequate Anesthetic Complications: no major complications apparent
[2024-10-03] MEDS: DOCUSATE SODIUM 100 MG CAP PO PRN (19:42)
[2024-10-04] MEDS: MELATONIN 3 MG TAB PO PRN (02:33)
[2024-10-04 07:07] LABS: Basophils # (auto) 0.04 K/uL (0.00-0.20); Basophils % (auto) 0.3 %; Eosinophils # (auto) 0.04 K/uL (0.00-0.50); Eosinophils % (auto) 0.3 %; Hematocrit (blood only) 42.4 % (37.0-47.0); Hemoglobin 14.7 g/dl (12.0-16.0); Immature Granulocytes # (auto) 0.07 K/uL (0.01-0.20); Immature Granulocytes % (auto) 0.5 %; Lymphocytes # (auto) 1.49 K/uL (1.20-3.40); Mean Corpuscular Hemoglobin 30.2 pg (25.0-34.0); Mean Corpuscular Hgb Conc 34.7 g/dL (32.0-36.0); Mean Corpuscular Volume 87.2 fL (80.0-100.0); Mean Platelet Volume 10.7 fL (9.4-12.4); Monocytes # (auto) 1.42 K/uL (0.11-0.59); Monocytes % (auto) 9.5 %; Neutrophils # (auto) 11.89 K/uL (1.40-6.50); Neutrophils % (auto) 79.4 %; Platelet Count 374 K/uL (130-400); RDW Coefficient of Variation 13.1 % (11.5-14.5); RDW Standard Deviation 41.7 fL (36.4-46.3); Red Blood Count 4.86 M/uL (4.20-5.40); White Blood Count 14.95 K/ul (4.8-10.8)
[2024-10-04 07:23] LABS: Albumin Globulin Ratio 1.6 (0.9-2); Albumin Level 4.4 gm/dl (3.4-5.0); BUN Creatinine Ratio 10.3 (10-20); Bilirubin,Total 0.7 mg/dl (0.2-1.0); Calcium 9.2 mg/dl (8.6-10.3); Creatinine Clr Calc Pharmacy 95.7 ml/min; Globulin 2.8 gm/dl (2.5-4.0); Potassium 3.6 mmol/L (3.5-5.1); Total Protein 7.2 gm/dl (6.0-8.3)
[2024-10-04] MEDS ORDERED: MoRPHine SULFATE 4 MG/ML 1 ML CARP\\VIAL IV PRN (09:39)
[2024-10-04] MEDS: ACETAMINOPHEN 325 MG TAB PO SCH (10:15)
[2024-10-04] MEDS: D5W AND 1/2NSS + 20MEQ KCL 20 MEQ/1,000 ML BAG IV SCH (10:49)
[2024-10-04] MEDS: oxyCODONE HCL SOLN 5 MG/5 ML UDC PO PRN (10:54)
[2024-10-04] MEDS: POLYETHYLENE (MIRALAX) 17 GM PACK PO PRN (10:56)
[2024-10-04 11:34] VITALS: RESP 20; O2SAT 96
--- NOTE | 2024-10-04 11:46 | Surgery Progress Note ---
Date of Service October 04, 2024 Assessment & Plan (1) Acute cholecystitis: Plan: Status post laparoscopic cholecystectomy for acute cholecystitis, overall doing well but still with some pain and nausea. Slowly advance diet as tolerated If feels much better this afternoon may go home, otherwise likely home tomorrow Continue antibiotics for 24 hours postop while in house, no indication for antibiotics at home If stays, would repeat LFTs and CBC in the morning Wound care instructions, activity striction's and return precautions given, call with questions or concerns Follow-up with me in 2 weeks Admission and Anticipated Discharge Date Admission Date: October 02, 2024 Subjective POD #1 lap sarbjit, still with some abdominal pain and nausea Physical Exam Constitutional: WD/WN, vitals as above Gastrointestinal (Abdomen): normal bowel sounds, soft, nontender, no hepatosplenomegaly Inspection/Auscultation: + abdominal surgical incision (Mild ecchymosis subxiphoid site, no infection) Results & Data Vital Signs (Past 12 Hours) Vital Signs Temp Pulse Resp BP BP Pulse Ox O2 Del Method 10/04/24 11:31 36.4 C L 86 20 135/79 96 Room Air 10/04/24 07:50 36.7 C 85 18 135/93 95 Room Air 10/04/24 03:48 36.7 C 85 18 162/96 H 94 Room Air Laboratory Results Laboratory Results - last 24 hr 10/04/24 06:36 WBC 14.95 H RBC 4.86 Hgb 14.7 Hct 42.4 MCV 87.2 MCH 30.2 MCHC 34.7 RDW Std Deviation 41.7 RDW Coeff of Mauricio 13.1 Plt Count 374 MPV 10.7 Immature Gran % (Auto) 0.5 Neut % (Auto) 79.4 Lymph % (Auto) 10.0 [place] % (Auto) 9.5 Eos % (Auto) 0.3 Baso % (Auto) 0.3 Neut # (Auto) 11.89 H Lymph # (Auto) 1.49 [place] # (Auto) 1.42 H Eos # (Auto) 0.04 Baso # (Auto) 0.04 Immature Gran # (Auto) 0.07 Sodium 140 Potassium 3.6 Chloride 105 Carbon Dioxide 28 Anion Gap 7 BUN 7 Creatinine 0.68 Est Cr Clr Drug Dosing 95.7 eGFR 110.07 BUN/Creatinine Ratio 10.3 Glucose 86 Calcium 9.2 Total Bilirubin 0.7 AST 61 H ALT 110 H Alkaline Phosphatase 91 Total Protein 7.2 Albumin 4.4 Globulin 2.8 Albumin/Globulin Ratio 1.6 PG Care Time/CCT Total # of Minutes Spent Total Time Spent with Patient: Total time spent is greater than 50% in coordination of care (as documented) at patient's floor/unit and/or counseling patient: Coding Level of Care Code 69054 Post Operative Follow-Up Diagnoses Acute cholecystitis K81.0
[2024-10-04 16:09] VITALS: BP 139/88; PULSE 77; TEMP 97.3
--- NOTE | 2024-10-04 17:39 | Discharge Summary ---
Discharge Summary Date of Service October 04, 2024 Principal Dx & Hospital Course #1 = Principal Diagnosis (1) Acute cholecystitis: (2) Chest pain: (3) GERD (gastroesophageal reflux disease): (4) Headache, migraine: (5) Multiple sclerosis: Plan Patient is a 43-year-old female with past medical history of multiple sclerosis, migraine headaches, hyperlipidemia, prediabetes, extrinsic asthma, incontinence, anxiety and depression, vitamin B12 and D deficiency who is currently admitted for gallstones and acute cholecystitis. She presented to the ED yesterday with substernal chest pain/epigastric pain. She has family history for heart disease, she thought she was having a heart attack. She had a positive Diop sign on physical exam, cardiac workup negative. Labs revealed mild hypokalemia and potassium supplementation was given. She had ultrasound of the gallbladder which revealed presence of gallstones and sludge, mildly distended gallbladder. Biliary duct without stones or dilation. #Acute Cholecystitis - initially treated with IV antibiotics, IV fluids, general surgery was consulted -laparoscopic cholecystectomy on 10/[address] Schneider, no immediate complications, gallbladder pathology pending. according to the op report the intraoperative findings do support the diagnosis - she had some nausea and right upper quadrant pain this morning but by afternoon/evening she was able to advance her diet to general and rely on oral medications for pain control - this morning AST is lower, ALT is basic at the same slightly higher, bilirubin remains normal, alk phos remains normal - discharged on scheduled Tylenol and as needed liquid oxycodone 5 mg every 4 hours - provided recommendations on bowel regimen - discussed plan of care with surgical team today - follow-up with Dr. Schneider in 2 weeks #Chest pain - substernal/epigastric region. - was secondary to cholecystitis -Chest xray normal -ECG NSR -Troponin x 2 negative #GERD - continue PPI #Multiple Sclerosis - due for ocrelizumab infusion in January - no current symptoms Notes For Next Care Provider Medication Changes From Visit scheduled acetaminophen and as needed oxycodone for immediate postop. Admission HPI Per Admitting Provider Shannon Garcia is a 43yo female with history of MS on Ocrelizumab injections q 6 months (last in July 2024), GERD and HLP presenting from home with acute onset chest pain. Patient was resting around 17:00 when she developed acute onset of severe substernal chest discomfort . She took two 81mg ASA with no improvement in pain. Pain was non-radiating, non-exertional, non-pleuritic. She had nausea as well as some shortness of breath and diaphoresis. Her pain persisted until given Morphine in the ER. In the ER she developed fairly severe RUQ abdominal pain. Ongoing nausea. No additional complaints at this time. ER Course: ASA Cefoxitin Morphine Zofran Phenergan Discharge Exam PHYSICAL EXAMINATION Last 24h vital signs reviewed, see documentation in flowsheet General: comfortable appearing, no distress HEENT: Normocephalic, atraumatic, pupils round and equal, sclerae anicteric, no conjunctival injection, moist mucus membranes Lungs: Normal respiratory effort. Clear to auscultation bilaterally. No RRW Heart: Regular rate and rhythm, no murmurs. No JVD Abdomen: Soft, nontender, nondistended. Bowel sounds present. tender to palpation in right upper quadrant, no rebound or rigidity, laparotomy incisions are small, well opposed dressed no erythema or drainage Extremities: Warm, dry, well-perfused. No extremity edema. Neuro: Alert and oriented x 4, face symmetric, moves 4 extremities well Psych: Normal affect and behavior Discharge Plan Discharge Items Patient Disposition: Home - Self-Care Reason For Visit: CHEST PAIN, RUQ ABDOMINAL PAIN Discharge Diagnosis: Acute cholecystits Activity: As commented below Lifting: No more than 10 pounds Bathing Comment: you can shower. no soaking in pools/bath for 2 weeks Exercise/Sports: Wait until after follow-up appointment Driving/Machine Use: no driving if taking narcotic pain medication Non-emergency contact: Surgeon Call non-emergency contact if: your temperature is above 101.5, your wound has increased redness, your wound has increased drainage and your wound pain has increased Follow-up/Referrals: Iza Apple DO [Primary Care Provider] - 10/12/24 8:20 am (Scheduled with FIFI Garcia on 10/12/24 at 8:20 am) Sergio Schneider DO, TIESHA [Physician] - (call office for follow up in 1-2 weeks ) Diet: Regular and Low Fat Addtl Attending Provider Instructions: You have surgical glue called dermabond on your surgical site incisions. You may shower with this on. This will tend to come off within a couple of weeks. Do not pick at it. Recommend holding the tirzepatide until you're eating normally, no nausea or constipation. This might be a week or two Addtl Industrial Management Teacher Provider Instructions: For constipation: Miralax 1 capful daily or twice a day as needed Senna tabs 1-2 tabs daily as needed -these are both safe to take local intermodal truck driver Dulcolax 5-10 mg tab daily as needed if the above meds are ineffective Dulcolax suppository per rectum daily as needed -these are for more severe constipation and are for short term use These are all [id number] meds Pending Studies at Discharge: Yes Studies:: surgical pathology Stand-Alone Forms: [facility] [place], Pain - Opioid Pain Management, Smoking Cessation Medications and DC Order Prescriptions: New oxycodone 5 mg/5 mL Solution 5 mg PO Q4H PRN (Reason: pain) Qty: 100 0RF polyethylene glycol 3350 [Miralax] 17 gram Powder In Packet 17 g PO DAILY PRN (Reason: constipation) Qty: 0 0RF Rx Instructions: over the counter. take daily until having regular BMs acetaminophen 325 mg Tablet 650 mg PO Q6H Qty: 0 0RF Rx Instructions: buy over the counter. take round the clock at least until no longer needing oxycodone, then decrease to as needed Continued Ocrevus 30 mg/mL solution 600 mg IV Q6MO 180 Days Qty: 20 1RF Ocrevus 30 mg/mL solution 600 mg IV .COMPLEX Qty: 20 1RF Rx Instructions: 600mg IV every 6 months. 30 mins before each infusion, Premedicate w/ Met hylprednisolone 100mg IV, Diphenhydramine 25mg IV, and Acetaminophen 500mg PO.; May give an additional 25mg Diphenhydramine IV during infusion PRN pantoprazole 40 mg tablet,delayed release (DR/EC) 40 mg PO DAILY Qty: 90 0RF albuterol sulfate 90 mcg/actuation HFA aerosol inhaler 1 - 2 puff inhalation Q4H PRN (Reason: extrinsic asthma) Qty: 8.5 1RF Rx Instructions: 1 - 2 puffs inhalation Q4-6H PRN; cyanocobalamin (vitamin B-12) 1,000 mcg tablet, sublingual 1,000 mcg SL QPM Qty: 30 rizatriptan 10 mg tablet,disintegrating 10 mg PO Q2H PRN (Reason: migraine headache) Qty: 12 5RF Rx Instructions: do not exceed 3 doses per 24 hrs cholecalciferol (vitamin D3) 25 mcg (1,000 unit) capsule 2,000 unit PO QPM estradiol 0.075 mg/24 hr patch semiweekly 1 patch transdermal .COMPLEX Qty: 24 4RF Rx Instructions: Replace patch every 3 to 4 days meclizine 25 mg tablet 25 mg PO DAILY PRN (Reason: history of vertigo) Qty: 30 1RF Held Zepbound 7.5 mg/0.5 mL pen injector 7.5 mg subcut .weekly Qty: 2 0RF Hold Instructions: Resume on 10/11/24. hold 1-2 weeks Discharge Orders: Discharge Order (Routine); Ordered 10/04/24 Ordered By: Melonie Daly Admission Data Admit Date/Time: 10/02/24 21:31 Attending Provider: Melonie Daly Admit Provider: Sara Devlin Primary Care Provider: Iza Apple Other Providers: Sergio Schneider; Sara Devlin Other Interventions: Discharge Summary Assessment (RN) Last Done: 10/04/24 17:54 Hospital Stay Data Consultations 10/02/24 20:45 Consult General Surgery Stat 10/02/24 21:11 ED Decision to Admit Stat 10/02/24 21:31 Consult General Surgery Routine Procedures Performed Operation Date: 10/03/24 12:00 Actual Procedures p Laparoscopic Cholecystectomy(Not Applicable) - Sergio Schneider DO, FACS Diagnostic Imagining Performed 10/02/24 18:29 US gallbladder Stat Pending Results Patient Have Any Pending Studies at Discharge: Yes Discharge Instructions Given to Patient (Per Discharging Provider) You have surgical glue called dermabond on your surgical site incisions. You may shower with this on. This will tend to come off within a couple of weeks. Do not pick at it. Recommend holding the tirzepatide until you're eating normally, no nausea or constipation. This might be a week or two Total Time Total Time Spent Total Time Spent (In Minutes): less than 30 minutes Coding Level of Care Code 56678 IN/OBS DISCH 30 MIN/LESS Diagnoses Acute cholecystitis K81.0 Chest pain R07.9 GERD (gastroesophageal reflux disease) K21.9 Headache, migraine G43.909 Multiple sclerosis G35
== END 2024-10-04 18:11 | disposition home or self-care (01) | DRG 419 ==
LOC: ED 18:11 → 2E 21:31 → SUATTDRO 21:31 → 2E 23:46

== ENCOUNTER 2024-10-07 10:56 | Observation (INO) ==
[2024-10-07] MEDS: MoRPHine SULFATE 4 MG/ML 1 ML CARP\\VIAL IV STA (11:34)
[2024-10-07] MEDS: ONDANSETRON INJ 2 MG/ML 2 ML VIAL IV STA (11:34)
[2024-10-07] MEDS: SODIUM CHLORIDE 0.9% 1,000 ML IV ONE (11:34)
[2024-10-07 11:40] LABS: Basophils # (auto) 0.07 K/uL (0.00-0.20); Basophils % (auto) 0.6 %; Eosinophils # (auto) 0.53 K/uL (0.00-0.50); Eosinophils % (auto) 4.2 %; Hematocrit (blood only) 46.4 % (37.0-47.0); Hemoglobin 16.3 g/dl (12.0-16.0); Immature Granulocytes # (auto) 0.03 K/uL (0.01-0.20); Immature Granulocytes % (auto) 0.2 %; Lymphocytes # (auto) 1.73 K/uL (1.20-3.40); Lymphocytes % (auto) 13.8 %; Mean Corpuscular Hemoglobin 29.9 pg (25.0-34.0); Mean Corpuscular Hgb Conc 35.1 g/dL (32.0-36.0); Mean Platelet Volume 10.5 fL (9.4-12.4); Monocytes % (auto) 8.8 %; Neutrophils # (auto) 9.05 K/uL (1.40-6.50); Neutrophils % (auto) 72.4 %; Platelet Count 410 K/uL (130-400); RDW Coefficient of Variation 12.7 % (11.5-14.5); RDW Standard Deviation 39.1 fL (36.4-46.3); Red Blood Count 5.46 M/uL (4.20-5.40); White Blood Count 12.51 K/ul (4.8-10.8)
[2024-10-07 11:56] LABS: Alanine Aminotransferase 57 U/L (7-52); Albumin Level 4.8 gm/dl (3.4-5.0); Alkaline Phosphatase 86 U/L (34-104); Anion Gap 11 (3-11); Aspartate Aminotransferase 24 U/L (13-39); BUN Creatinine Ratio 11.4 (10-20); Bilirubin Direct 0.1 mg/dl (0-0.2); Bilirubin,Total 0.6 mg/dl (0.2-1.0); Blood Urea Nitrogen 8 mg/dl (6-23); Calcium 9.8 mg/dl (8.6-10.3); Carbon Dioxide 24 mmol/L (21-32); Chloride 103 mmol/L (98-107); Glucose 100 mg/dl (70-99(Fasting)); Lipase 21 U/L (11-82); Potassium 3.7 mmol/L (3.5-5.1); Sodium 138 mmol/L (136-145); Total Protein 8.3 gm/dl (6.0-8.3)
[2024-10-07] MEDS: OPTIRAY 320 125ml IV ONE (12:15)
[2024-10-07 12:19] LABS: Partial Thromboplastin Ratio 1.1; Partial Thromboplastin Time 30 Seconds (21-31)
--- NOTE | 2024-10-07 12:41 | CT Scan Report ---
CT angio chest PE protocol CT DOSE: 1825.59 mGy.cm HISTORY: ro PE. TECHNIQUE: Multiple CTA images of the chest were obtained after the intravenous administration of 120 ml Optiray. Coronal and sagittal MIPS were obtained from the axial data set and were submitted for review. All measurements were obtained according to NASCET criteria. A dose lowering technique was u tilized adhering to the principles of ALARA. COMPARISON STUDY: None FINDINGS: There is mild atelectasis in the lung bases. No other pulmonary consolidation or pleural ef fusion. No pneumothorax. No enlarged adenopathy. No pericardial effusion. No pulmonary embolism. No t horacic aortic dissection or aneurysm. No acute osseous findings. IMPRESSION: No pulmonary embolism seen. ACT 112: Negative or not required by law. The above report was generated using voice recognition software. It may contain grammatical, syntax o r spelling errors. Electronically signed by: Sergio Godfrey M.D. 10/07/2024 12:39 PM
--- NOTE | 2024-10-07 12:58 | CT Scan Report ---
ABDOMEN AND PELVIS CT WITH IV CONTRAST HISTORY: Acute generalized abdominal pain post op abd pain TECHNIQUE: Multiaxial CT images of the abdomen and pelvis were performed following the IV administrat ion of 120 cc of Optiray, A dose lowering technique was utilized adhering to the principles of ALARA . COMPARISON STUDY: CT chest of same day, CT abdomen and pelvis 09/01/2012 FINDINGS: Mild bibasilar linear atelectasis chest CT dictated separately. There is no pneumatosis or pneumoperitoneum. Unremarkable spleen, pancreas and adrenal glands. Hepatic steatosis. Postoperative changes compatible with recent laparoscopic cholecystectomy. Trace fluid within the margaret hepatis wit h edema tracking along the inferior right hepatic lobe. Postoperative subcutaneous stranding within t he anterior abdominal wall. No drainable postoperative fluid collection. There is mild generally symmetric appearing bilateral hydroureteronephrosis with urinary distention. Debris versus lesions in the region of the urinary bladder trigone measuring 2 cm on image 305 series 6. No adnexal mass lesions. No abdominal aortic aneurysm. No bowel obstruction or bowel wall thicken ing. There is mild nonspecific wall thickening of the distal esophagus. Appendectomy. No acute fractu re. IMPRESSION: 1. Postoperative changes compatible with recent laparoscopic cholecystectomy with trace expected flui d within the margaret hepatis. No drainable postoperative fluid collections. 2. No bowel obstruction, bowel wall thickening or pneumoperitoneum. 3. Mild symmetric bilateral hydroureteronephrosis with distended urinary bladder. Additionally, there is debris versus lesion within the region of the urinary bladder trigone. Findings could be correlat ed with cystoscopy. 4. Appendectomy. ACT 112: Negative or not required by law. The above report was generated using voice recognition software. It may contain grammatical, syntax o r spelling errors. Electronically signed by: Brian Orellana M.D. 10/07/2024 12:55 PM
[2024-10-07] MEDS: KETOROLAC TROMETHAMINE 15 MG/ML VIAL IV ONE (13:24)
[2024-10-07 13:44] LABS: Appearance Urine Clear (Clear); Bilirubin Urine Negative (Negative); Blood Urine Negative (Negative); Color Urine Yellow; Glucose Urine UA Negative (Negative); Ketones Urine 2+ (Negative); Leukocyte Esterase Urine Negative (Negative); Nitrite Urine Negative (Negative); Protein Urine Negative (Negative); Specific Gravity Urine > 1.045 (1.000-1.030); Urobilinogen Urine Negative (Negative)
[2024-10-07] MEDS: KETOROLAC TROMETHAMINE 15 MG/ML VIAL IV STA (14:57)
--- NOTE | 2024-10-07 15:03 | History & Physical Report ---
Date of Service October 07, 2024 Assessment & Plan (1) Postoperative abdominal pain: Plan: This is a 43yF who is s/p laparoscopic cholecystectomy on 10/03/[address] Schneider, discharged on POD#1, who now presents to the ER today with complaints of abdominal pain, nausea/dry heaves, and chills. She called the surgical office and was asked to come into the ER for further evaluation. She underwent a CT a/p that showed postoperative changes compatible with recent laparoscopic cholecystectomy with trace expected fluid within the margaret hepatis. No drainable postoperative fluid collections. CT chest showed no evidence of pulmonary embolism. The patient reports taking her oxycodone intermittently as needed along with tylenol. The pain is more located in the RUQ region. No emesis. Blood work was obtained that reveals a WBC 12, Hbg 16.3, LFTs show Tb 0.6, Db 0.1, AST 24, ALT 57, alkp 86, lipase 21. Vitals are stable and she is afebrile. On exam abdomen is soft with tenderness to palpation in the RUQ/epigastric regions. Incisions are c/d/i without signs of infection, there is some mild ecchymosis of the epigastric site. Patient's imaging is not concerning for any obvious acute process at this time. Outside of WBC of slightly elevated to 12 her blood work is also not overly concerning. Patient does feel slightly better than earlier today. She was provided options regarding offering pain recommendations and sending her home, vs. stay for overnight observation for pain/symptom control and consideration of a HIDA scan to rule out a bile leak. After patient took some time to deliberate after receiving a dose of toradol she ultimately requested to stay for overnight observation. We will admit the patient and order prn pain/nausea meds as well as a HIDA to follow up upon. No plans for any surgical intervention warranted. History of Present Illness Primary Care Provider: Iza Apple, This is a 43yF who is s/p laparoscopic cholecystectomy on 10/03/[address] Schneider, discharged on POD#1, who now presents to the ER today with complaints of abdominal pain, nausea/dry heaves. The patient reports associated chills. She called the surgical office and was asked to come into the ER for further evaluation. She underwent a CT a/p that showed postoperative changes compatible with recent laparoscopic cholecystectomy with trace expected fluid within the margaret hepatis. No drainable postoperative fluid collections. CT chest showed no evidence of pulmonary embolism. The patient reports taking her oxycodone intermittently as needed. The pain is more located in the RUQ region. No emesis. Allergies Allergy/AdvReac Type Severity Reaction Status Date / Time ferric subsulfate Allergy Unknown MONSEL'S Verified 08/13/24 10:03 SOLUTION-- VOMITTING, SEVERE STOMACH PAIN mustard AdvReac Intermediate Abdominal Verified 08/13/24 10:03 cramps Penicillins AdvReac Intermediate Severe N/V Verified 08/13/24 10:03 Home Medications Medication Instructions Recorded Confirmed Type cyanocobalamin (vitamin B-12) 1,000 mcg sublingual QPM #30 tabs 03/08/19 10/07/24 History 1,000 mcg sublingual tablet cholecalciferol (vitamin D3) 25 2,000 unit PO QPM 08/02/22 10/07/24 History mcg (1,000 unit) capsule rizatriptan 10 mg disintegrating 10 mg PO Q2H PRN migraine headache 08/04/23 10/07/24 Rx tablet #12 tabs estradiol 0.075 mg/24 hr 1 patch transdermal .COMPLEX #24 ea 04/28/24 10/07/24 Rx semiweekly transdermal patch meclizine 25 mg tablet 25 mg PO DAILY PRN history of 06/04/24 10/07/24 Rx vertigo #30 tabs ocrelizumab 30 mg/mL intravenous 600 mg (20 mL) IV .COMPLEX #20 mL 06/18/24 10/07/24 Rx solution (Ocrevus) pantoprazole 40 mg tablet,delayed 40 mg PO DAILY #90 tabs 09/16/24 10/07/24 Rx release albuterol sulfate 90 mcg/actuation 1 - 2 puff inhalation Q4H PRN 09/27/24 10/07/24 Rx aerosol inhaler extrinsic asthma #8.5 grams tirzepatide (weight loss) 7.5 7.5 mg (0.5 mL) subcut .weekly #2 10/01/24 10/07/24 Rx mg/0.5 mL subcutaneous pen mL injector (Zepbound) acetaminophen 325 mg tablet 650 mg (2 x 325 mg) PO Q6H #0 tabs 03/24/25 03/27/25 Rx oxycodone 5 mg/5 mL oral solution 5 mg (5 mL) PO Q4H PRN pain #100 mL 10/04/24 10/07/24 Rx polyethylene glycol 3350 17 gram 17 g PO DAILY PRN constipation #0 10/04/24 10/07/24 Rx oral powder packet (Miralax) ea Past Med/Surg History Problem List (Updated 10/07/24 @ 16:52 by Ean Le MD) Post-op pain (Acute) Postoperative abdominal pain Right upper quadrant abdominal pain (Acute) Chest pain (Acute) Acute cholecystitis (Acute) Cholelithiasis (Acute) Hyperlipidemia Multiple sclerosis Mixed urge and stress incontinence Prediabetes Incomplete bladder emptying Mixed urge and stress incontinence Urinary Incontinence CMC (carpometacarpal) synovitis GERD (gastroesophageal reflux disease) Anxiety and depression Extrinsic asthma Headache, migraine Insomnia Vitamin B12 deficiency Vitamin D deficiency Medical History Dizziness 05/27/22 History of anesthesia reaction difficulty waking during last cystoscopy 11/2023 History of urinary tract infection History of COVID-19 Multiple, most recent summer 2022, symptoms resolved Pap smear of cervix with high grade squamous intraepithelial lesion (HGSIL) 2011 Surgical History S/P laparoscopic cholecystectomy H/O umbilical hernia repair (10/03/24) Laparoscopic Cholecystectomy(Not Applicable) - Sergio Schneider, , FACS S/P urological surgery (02/2024) cystoscopy / bulkamid procedure History of rotator cuff surgery (01/2024) left History of carpal tunnel release (2019) Left hand S/P tonsillectomy S/P LEEP (2011) For HGSIL, colposcopy w/ LEEP, neg bx, neg path on LEEP History of robot-assisted laparoscopic hysterectomy History of colposcopy (2006) LGSIL on 04/29/07 pap 11/2011 HGSIL pap, neg colpo bx, neg path on LEEP H/O tubal ligation History of appendectomy Family History Grandmother (Paternal) Breast cancer Cervical cancer Uterine cancer Ovarian cancer Family/Other Cerebral arterial aneurysm Father Diabetes Hypercholesteremia Mother Hypertension Grandfather (Maternal) Prostate cancer Denies family history of Colorectal cancer Social History Smoking Status: Never smoker Second Hand Exposure: No; Do You Dip or Chew Tobacco: No; Hx Alcohol Use: No Hx Substance Use: No Preferred Language: Montserratian Communication Ability: Effective Visual Impairment: No Limitations Hearing Ability: Normal Case Repairer Required: No Beliefs That Will Affect Care: None marital status: Single Current Living Situation: Family Current Living Situation Comment: Daughters w/ her current occupational status: employed current occupation: [employer] How many Children do You have: 2 Feels Safe at Home: Yes Childhood Exposure to Second-Hand Smoke: No Diet: low carbohydrate Diet Comment: no soda, no fast food caffeine: Yes (coffee) during the past year weight has: remained stable Dental Care, Regularly: Yes Physical Activity Frequency: Daily Physical Activity Frequency Comment: walking 2 miles daily, cardio at home Seatbelt Use: always Sunscreen Use: Yes Assistive Devices: None Review of Systems Constitutional: + chills; no fever Respiratory: no dyspnea Cardiovascular: no chest pain Gastrointestinal: + abdominal pain and + nausea; no vomiti ng Physical Exam Physical Exam: awake, alert Respiratory: normal respiratory effort Gastrointestinal (Abdomen): Inspection/Auscultation: + abdominal surgical incision (c/d/i some ecchymosis of epigastric site ) Percussion/Palpation: + abdomen tender (ttp in the RUQ/epigastric area ) and abdomen soft Results & Data Results & Data Vital Signs (Past 12 Hours) Vital Signs Temp Pulse Pulse Resp BP BP Pulse Ox 10/07/24 14:30 79 20 10/07/24 14:00 82 15 10/07/24 13:30 80 16 94 10/07/24 13:21 77 19 94 10/07/24 13:19 77 19 161/99 H 97 10/07/24 13:17 161/99 H 10/07/24 12:40 81 10/07/24 12:03 82 20 95 10/07/24 12:00 88 15 93 10/07/24 11:48 84 20 98 10/07/24 11:24 142/114 H 10/07/24 10:58 97.9 F 107 H 22 129/91 97 O2 Del Method 03/27/25 14:30 10/07/24 14:00 10/07/24 13:30 Room Air 10/07/24 13:21 Room Air 10/07/24 13:19 Room Air 10/07/24 13:17 10/07/24 12:40 10/07/24 12:03 10/07/24 12:00 10/07/24 11:48 10/07/24 11:24 10/07/24 10:58 Room Air Diagnostic Findings ABDOMEN AND PELVIS CT WITH IV CONTRAST HISTORY: Acute generalized abdominal pain post op abd pain TECHNIQUE: Multiaxial CT images of the abdomen and pelvis were performed following the IV administration of 120 cc of Optiray, A dose lowering technique was utilized adhering to the principles of ALARA. COMPARISON STUDY: CT chest of same day, CT abdomen and pelvis 09/01/2012 FINDINGS: Mild bibasilar linear atelectasis chest CT dictated separately. There is no pneumatosis or pneumoperitoneum. Unremarkable spleen, pancreas and adrenal glands. Hepatic steatosis. Postoperative changes compatible with recent laparoscopic cholecystectomy. Trace fluid within the margaret hepatis with edema tracking along the inferior right hepatic lobe. Postoperative subcutaneous stranding within the anterior abdominal wall. No drainable postoperative fluid collection. There is mild generally symmetric appearing bilateral hydroureteronephrosis with urinary distention. Debris versus lesions in the region of the urinary bladder trigone measuring 2 cm on image 305 series 6. No adnexal mass lesions. No abdominal aortic aneurysm. No bowel obstruction or bowel wall thickening. There is mild nonspecific wall thickening of the distal esophagus. Appendectomy. No acute fracture. IMPRESSION: 1. Postoperative changes compatible with recent laparoscopic cholecystectomy with trace expected fluid within the margaret hepatis. No drainable postoperative fluid collections. 2. No bowel obstruction, bowel wall thickening or pneumoperitoneum. 3. Mild symmetric bilateral hydroureteronephrosis with distended urinary bladder. Additionally, there is debris versus lesion within the region of the urinary bladder trigone. Findings could be correlated with cystoscopy. 4. Appendectomy. ACT 112: Negative or not required by law. The above report was generated using voice recognition software. It may contain grammatical, syntax or spelling errors. Electronically signed by: Brian Orellana M.D. 10/07/2024 12:55 PM Supervising Physician Co-Signing Physician Notes Postop day 4 laparoscopic cholecystectomy for cholecystitis Her CT images and results were personally viewed and interpreted by myself, no large collection concerning for biloma or abscess Due to her significant pain and nausea, we will admit her for observation overnight If her pain is not improved by tomorrow morning, we may get a HIDA scan to rule out a bile leak although her LFTs are normal PG Care Time/CCT Total # of Minutes Spent Total Time Spent with Patient: Total time spent is greater than 50% in coordination of care (as documented) at patient's floor/unit and/or counseling patient: Coding Level of Care Code None Diagnoses Postoperative abdominal pain R10.9; G89.18
--- NOTE | 2024-10-07 16:41 | Emergency Department Note ---
History of Present Illness General Chief Complaint: Abdominal Pain Stated Complaint: PAIN AFTER SURGERY, RIGHT BELOW RIBCAGE Time Seen by Provider: 10/07/24 11:08 History of Present Illness Provider Complaint: abdominal pain Onset (ago): 1 day(s) Pain Consistency: constant Location: RUQ and epigastric Radiation: none Severity: moderate Maximum Pain Intensity: 7 Current Pain Intensity: 7 Quality: + stabbing and + sharp Relieved By: + nothing Exacerbated By: + nothing Context: + recent surgery/procedure (Cholecystectomy [address] Schneider done laparoscopically); no foreign travel, no possible food poisoning, no sick contacts, no recent antibiotic use or no recent injury Associated Symptoms: + breathing difficulty; no nausea, no vomiting, no diarrhea, no fever, no chills, no constipation, no dysuria, no hematemesis, no hematochezia, no melena, no hematuria, no anorexia, no headache and no chest pain Home Medications Medication Instructions Recorded Confirmed Type cyanocobalamin (vitamin B-12) 1,000 mcg sublingual QPM #30 tabs 03/08/19 10/07/24 History 1,000 mcg sublingual tablet cholecalciferol (vitamin D3) 25 2,000 unit PO QPM 08/02/22 10/07/24 History mcg (1,000 unit) capsule rizatriptan 10 mg disintegrating 10 mg PO Q2H PRN migraine headache 08/04/23 10/07/24 Rx tablet #12 tabs estradiol 0.075 mg/24 hr 1 patch transdermal .COMPLEX #24 ea 04/28/24 10/07/24 Rx semiweekly transdermal patch meclizine 25 mg tablet 25 mg PO DAILY PRN history of 06/04/24 10/07/24 Rx vertigo #30 tabs ocrelizumab 30 mg/mL intravenous 600 mg (20 mL) IV .COMPLEX #20 mL 06/18/24 10/07/24 Rx solution (Ocrevus) pantoprazole 40 mg tablet,delayed 40 mg PO DAILY #90 tabs 09/16/24 10/07/24 Rx release albuterol sulfate 90 mcg/actuation 1 - 2 puff inhalation Q4H PRN 09/27/24 10/07/24 Rx aerosol inhaler extrinsic asthma #8.5 grams tirzepatide (weight loss) 7.5 7.5 mg (0.5 mL) subcut .weekly #2 10/01/24 10/07/24 Rx mg/0.5 mL subcutaneous pen mL injector (Zepbound) acetaminophen 325 mg tablet 650 mg (2 x 325 mg) PO Q6H #0 tabs 10/04/24 10/07/24 Rx oxycodone 5 mg/5 mL oral solution 5 mg (5 mL) PO Q4H PRN pain #100 mL 10/04/24 10/07/24 Rx polyethylene glycol 3350 17 gram 17 g PO DAILY PRN constipation #0 10/04/24 10/07/24 Rx oral powder packet (Miralax) ea Allergies Allergy/AdvReac Type Severity Reaction Status Date / Time ferric subsulfate Allergy Unknown MONSEL'S Verified 08/13/24 10:03 SOLUTION-- VOMITTING, SEVERE STOMACH PAIN mustard AdvReac Intermediate Abdominal Verified 08/13/24 10:03 cramps Penicillins AdvReac Intermediate Severe N/V Verified 08/13/24 10:03 Past Med/Surg History Problem List (Updated 10/07/24 @ 16:52 by Ean Le MD) Post-op pain (Acute) Postoperative abdominal pain Right upper quadrant abdominal pain (Acute) Chest pain (Acute) Acute cholecystitis (Acute) Cholelithiasis (Acute) Hyperlipidemia Multiple sclerosis Mixed urge and stress incontinence Prediabetes Incomplete bladder emptying Mixed urge and stress incontinence Urinary Incontinence CMC (carpometacarpal) synovitis GERD (gastroesophageal reflux disease) Anxiety and depression Extrinsic asthma Headache, migraine Insomnia Vitamin B12 deficiency Vitamin D deficiency Medical History Dizziness 05/27/22 History of anesthesia reaction difficulty waking during last cystoscopy 11/2023 History of urinary tract infection History of COVID-19 Multiple, most recent summer 2022, symptoms resolved Pap smear of cervix with high grade squamous intraepithelial lesion (HGSIL) 2011 Surgical History S/P laparoscopic cholecystectomy H/O umbilical hernia repair (10/03/24) Laparoscopic Cholecystectomy(Not Applicable) - Sergio Schneider, DO, FACS S/P urological surgery (02/2024) cystoscopy / bulkamid procedure History of rotator cuff surgery (01/2024) left History of carpal tunnel release (2019) Left hand S/P tonsillectomy S/P LEEP (2011) For HGSIL, colposcopy w/ LEEP, neg bx, neg path on LEEP History of robot-assisted laparoscopic hysterectomy History of colposcopy (2006) LGSIL on 04/29/07 pap 11/2011 HGSIL pap, neg colpo bx, neg path on LEEP H/O tubal ligation History of appendectomy Family History Grandmother (Paternal) Breast cancer Cervical cancer Uterine cancer Ovarian cancer Family/Other Cerebral arterial aneurysm Father Diabetes Hypercholesteremia Mother Hypertension Grandfather (Maternal) Prostate cancer Denies family history of Colorectal cancer Social History Smoking Status: Never smoker Second Hand Exposure: No; Do You Dip or Chew Tobacco: No; Hx Alcohol Use: No Hx Substance Use: No Preferred Language: Belarusian Communication Ability: Effective Visual Impairment: No Limitations Hearing Ability: Normal Service Desk Associate Required: No Beliefs That Will Affect Care: None marital status: Single Current Living Situation: Family Current Living Situation Comment: Daughters w/ her current occupational status: employed current occupation: [employer] How many Children do You have: 2 Feels Safe at Home: Yes Childhood Exposure to Second-Hand Smoke: No Diet: low carbohydrate Diet Comment: no soda, no fast food caffeine: Yes (coffee) during the past year weight has: remained stable Dental Care, Regularly: Yes Physical Activity Frequency: Daily Physical Activity Frequency Comment: walking 2 miles daily, cardio at home Seatbelt Use: always Sunscreen Use: Yes Assistive Devices: None Physical Exam 2 Vital Signs: Vital Signs - 24 hr 10/07/24 10:58 10/07/24 11:24 10/07/24 11:48 Temperature 36.6 C Temperature Source Temporal Artery Sc an Pulse Rate 107 H 84 Pulse Rate [Apical ] Pulse Rate from Sp O2 Sensor 81 Respiratory Rate 22 20 Respiratory Effort / Characteristics Non-Labored Sponta neous Respiratory Depth Normal Blood Pressure 129/91 142/114 H Blood Pressure [Ri ght Arm] Blood Pressure Sandy n 103 124 Blood Pressure Sandy n [Right Arm] Pulse Oximetry 97 98 Oxygen Delivery Me thod Room Air Sepsis Recent Feve r Within 48 Hours No Sepsis New/Unexpla ined Change in Men zoraida Status N/A Sepsis Action Take n by Nursing No Action Required 10/07/24 12:00 10/07/24 12:03 10/07/24 12:40 Temperature Temperature Source Pulse Rate 88 82 81 Pulse Rate [Apical ] Pulse Rate from Sp O2 Sensor 87 83 Respiratory Rate 15 20 Respiratory Effort / Characteristics Respiratory Depth Blood Pressure Blood Pressure [Ri ght Arm] Blood Pressure Sandy n Blood Pressure Sandy n [Right Arm] Pulse Oximetry 93 95 Oxygen Delivery Me thod Sepsis Recent Feve r Within 48 Hours Sepsis New/Unexpla ined Change in Men zoraida Status Sepsis Action Take n by Nursing 10/07/24 13:17 10/07/24 13:19 10/07/24 13:21 Temperature Temperature Source Pulse Rate 77 Pulse Rate [Apical ] 77 Pulse Rate from Sp O2 Sensor 77 Respiratory Rate 19 19 Respiratory Effort / Characteristics Respiratory Depth Blood Pressure 161/99 H Blood Pressure [Ri ght Arm] 161/99 H Blood Pressure Sandy n 103 Blood Pressure Sandy n [Right Arm] 119 Pulse Oximetry 97 94 Oxygen Delivery Me thod Room Air Room Air Sepsis Recent Feve r Within 48 Hours Sepsis New/Unexpla ined Change in Men zoraida Status Sepsis Action Take n by Nursing 10/07/24 13:30 10/07/24 14:00 10/07/24 14:30 Temperature Temperature Source Pulse Rate 80 82 79 Pulse Rate [Apical ] Pulse Rate from Sp O2 Sensor 80 Respiratory Rate 16 15 20 Respiratory Effort / Characteristics Respiratory Depth Blood Pressure Blood Pressure [Ri ght Arm] Blood Pressure Sandy n Blood Pressure Sandy n [Right Arm] Pulse Oximetry 94 Oxygen Delivery Me thod Room Air Sepsis Recent Feve r Within 48 Hours Sepsis New/Unexpla ined Change in Men zoraida Status Sepsis Action Take n by Nursing Physical Exam: Physical Exam GENERAL: oriented to person, place, and time. appears well-developed and well- nourished. HENT: Exam performed. - Head: Normocephalic and atraumatic. EYES: Conjunctivae and EOM are normal. Right eye exhibits no discharge. Left eye exhibits no discharge. No scleral icterus. NECK: Normal range of motion. Neck supple. No JVD present. CV: Normal rate, regular rhythm, normal heart sounds and intact distal pulses. There is no peripheral edema. Palpable radial pulses bue. PULM/CHEST: Effort normal and breath sounds normal. No respiratory distress. No stridor. no wheezes. no rales. ABD: The abdomen is soft. There is tenderness to palpation over the right upper quadrant and epigastric area. Surgical incisions are dry and clear NEURO: Motor and sensation grossly intact. SKIN: Skin is warm and dry. He is not diaphoretic. PSYCH: normal mood and affect. Behavior is normal. Judgment and thought content normal. Course Course 1108: The patient was evaluated in room B10. A complete history and physical exam was performed Cardiac monitoring: An order was placed for continuous cardiac monitoring. The monitor shows a rate of 100 with sinus rhythm interpreted by me 1300: Vital signs stable. Labs are unremarkable. Discussed case with general surgery who states he will be down to evaluate the patient. 1340: Vital signs stable. Imaging is unremarkable. Possible distended bladder. Will check urinalysis. General surgery has evaluated the patient and stated that they would give the patient IV Toradol and if her pain is controlled can be discharged otherwise stable might admit her to the hospital. They stated they will reassess the patient after about an hour. 1500: Vital signs stable. Patient reports she is still having abdominal pain. Repeat dose of Toradol given. Patient stated she would like to stay in the hospital under the care of general surgery for pain control. Yadira Ogden notified and states she will admit the patient to Dr. Thrasher's service. Administered Medications Discontinued Medications Sodium Chloride (Nss) 1,000 mls @ 999 mls/hr IV .Q1H1M ONE Stop: 10/07/24 12:16 Last Infusion: 10/07/24 13:13 Dose: Infused Documented By: Admin: 10/07/24 11:34 Dose: 999 mls/hr Documented By: KAROLINA Ioversol (Optiray 320 125ml) 120 ml IV ONCE ONE Stop: 10/07/24 12:15 Last Admin: 10/07/24 12:15 Dose: 120 ml Documented By: HI Ketorolac Tromethamine (Ketorolac Tromethamine 15 Mg/Ml Vial) 15 mg IV NOW ONE Stop: 10/07/24 13:18 Last Admin: 10/07/24 13:24 Dose: 15 mg Documented By: CRESCENCIO Ketorolac Tromethamine (Ketorolac Tromethamine 15 Mg/Ml Vial) 15 mg IV NOW STA Stop: 10/07/24 14:49 Last Admin: 10/07/24 14:57 Dose: 15 mg Documented By: KAROLINA Morphine Sulfate (Morphine Sulfate 4 Mg/Ml 1 Ml Carp\Vial) 4 mg IV NOW STA Stop: 10/07/24 11:17 Last Admin: 10/07/24 11:34 Dose: 4 mg Documented By: KAROLINA Ondansetron HCl (Ondansetron Inj 2 Mg/Ml 2 Ml Vial) 4 mg IV NOW STA Stop: 10/07/24 11:17 Last Admin: 10/07/24 11:34 Dose: 4 mg Documented By: KAROLINA Medical Decision Making Medical Records Attestation: I reviewed the patient's medical records. External medical records reviewed. Patient had laparoscopic cholecystectomy performed by Dr. Schneider on October 03, 2024. She was discharged on October 04, 2024. Laboratory Data Attestation: I reviewed the patient's lab results. 10/07/24 11:20 10/07/24 11:20 Lab Results 10/07/24 10/07/24 Range/Units 11:20 13:37 WBC 12.51 H (4.8-10.8) K/ul RBC 5.46 H (4.20-5.40) M/uL Hgb 16.3 H (12.0-16.0) g/dl Hct 46.4 (37.0-47.0) % MCV 85.0 (80.0-100.0) fL MCH 29.9 (25.0-34.0) pg MCHC 35.1 (32.0-36.0) g/dL RDW Std Deviation 39.1 (36.4-46.3) fL RDW Coeff of Mauricio 12.7 (11.5-14.5) % Plt Count 410 H (130-400) K/uL MPV 10.5 (9.4-12.4) fL Immature Gran % (Auto) 0.2 % Neut % (Auto) 72.4 % Lymph % (Auto) 13.8 % [place] % (Auto) 8.8 % Eos % (Auto) 4.2 % Baso % (Auto) 0.6 % Neut # (Auto) 9.05 H (1.40-6.50) K/uL Lymph # (Auto) 1.73 (1.20-3.40) K/uL [place] # (Auto) 1.10 H (0.11-0.59) K/uL Eos # (Auto) 0.53 H (0.00-0.50) K/uL Baso # (Auto) 0.07 (0.00-0.20) K/uL Immature Gran # (Auto) 0.03 (0.01-0.20) K/uL PT 11.0 (9.0-12.0) Seconds INR 1.0 (0.9-1.1) APTT 30 (21-31) Seconds PTT Ratio 1.1 Sodium 138 (136-145) mmol/L Potassium 3.7 (3.5-5.1) mmol/L Chloride 103 (98-107) mmol/L Carbon Dioxide 24 (21-32) mmol/L Anion Gap 11 (3-11) BUN 8 (6-23) mg/dl Creatinine 0.70 (0.6-1.2) mg/dl Est Cr Clr Drug Dosing Not Reportable eGFR 109.30 BUN/Creatinine Ratio 11.4 (10-20) Glucose 100 H (70-99(Fasting)) mg/dl Calcium 9.8 (8.6-10.3) mg/dl Total Bilirubin 0.6 (0.2-1.0) mg/dl Direct Bilirubin 0.1 (0-0.2) mg/dl AST 24 (13-39) U/L ALT 57 H (7-52) U/L Alkaline Phosphatase 86 (34-104) U/L Total Protein 8.3 (6.0-8.3) gm/dl Albumin 4.8 (3.4-5.0) gm/dl Lipase 21 (11-82) U/L Urine Color Yellow Urine Appearance Clear (Clear) Urine pH 6.0 (4.5-7.5) Ur Specific Coleman > 1.045 H (1.000-1.030) Urine Protein Negative (Negative) Urine Glucose (UA) Negative (Negative) Urine Ketones 2+ H (Negative) Urine Blood Negative (Negative) Urine Nitrite Negative (Negative) Urine Bilirubin Negative (Negative) Urine Urobilinogen Negative (Negative) Ur Leukocyte Esterase Negative (Negative) Imaging Data Radiologist's Impression: Abdomen/Pelvis CT 10/07/24 11:[address] WITH IV CONTRAST HISTORY: Acute generalized abdominal pain post op abd pain TECHNIQUE: Multiaxial CT images of the abdomen and pelvis were performed following the IV administration of 120 cc of Optiray, A dose lowering technique was utilized adhering to the principles of ALARA. COMPARISON STUDY: CT chest of same day, CT abdomen and pelvis 09/01/2012 FINDINGS: Mild bibasilar linear atelectasis chest CT dictated separately. There is no pneumatosis or pneumoperitoneum. Unremarkable spleen, pancreas and adrenal glands. Hepatic steatosis. Postoperative changes compatible with recent laparoscopic cholecystectomy. Trace fluid within the margaret hepatis with edema tracking along the inferior right hepatic lobe. Postoperative subcutaneous stranding within the anterior abdominal wall. No drainable postoperative fluid collection. There is mild generally symmetric appearing bilateral hydroureteronephrosis with urinary distention. Debris versus lesions in the region of the urinary bladder trigone measuring 2 cm on image 305 series 6. No adnexal mass lesions. No abdominal aortic aneurysm. No bowel obstruction or bowel wall thickening. There is mild nonspecific wall thickening of the distal esophagus. Appendectomy. No acute fracture. IMPRESSION: 1. Postoperative changes compatible with recent laparoscopic cholecystectomy with trace expected fluid within the margaret hepatis. No drainable postoperative fluid collections. 2. No bowel obstruction, bowel wall thickening or pneumoperitoneum. 3. Mild symmetric bilateral hydroureteronephrosis with distended urinary bladder. Additionally, there is debris versus lesion within the region of the urinary bladder trigone. Findings could be correlated with cystoscopy. 4. Appendectomy. ACT 112: Negative or not required by law. The above report was generated using voice recognition software. It may contain grammatical, syntax or spelling errors. Electronically signed by: Brian Orellana M.D. 10/07/2024 12:55 PM Chest CTA 10/07/24 11:16 CT angio chest PE protocol CT DOSE: 1825.59 mGy.cm HISTORY: ro PE. TECHNIQUE: Multiple CTA images of the chest were obtained after the intravenous administration of 120 ml Optiray. Coronal and sagittal MIPS were obtained from the axial data set and were submitted for review. All measurements were obtained according to NASCET criteria. A dose lowering technique was utilized adhering to the principles of ALARA. COMPARISON STUDY: None FINDINGS: There is mild atelectasis in the lung bases. No other pulmonary consolidation or pleural effusion. No pneumothorax. No enlarged adenopathy. No pericardial effusion. No pulmonary embolism. No thoracic aortic dissection or aneurysm. No acute osseous findings. IMPRESSION: No pulmonary embolism seen. ACT 112: Negative or not required by law. The above report was generated using voice recognition software. It may contain grammatical, syntax or spelling errors. Electronically signed by: Sergio Godfrey M.D. 10/07/2024 12:39 PM MDM Narrative 1108: The patient was evaluated in room B10. A complete history and physical exam was performed Cardiac monitoring: An order was placed for continuous cardiac monitoring. The monitor shows a rate of 100 with sinus rhythm interpreted by me 1300: Vital signs stable. Labs are unremarkable. Discussed case with general surgery who states he will be down to evaluate the patient. 1340: Vital signs stable. Imaging is unremarkable. Possible distended bladder. Will check urinalysis. General surgery has evaluated the patient and stated that they would give the patient IV Toradol and if her pain is controlled can be discharged otherwise stable might admit her to the hospital. They stated they will reassess the patient after about an hour. 1500: Vital signs stable. Patient reports she is still having abdominal pain. Repeat dose of Toradol given. Patient stated she would like to stay in the hospital under the care of general surgery for pain control. Yadira Ogden notified and states she will admit the patient to Dr. Thrasher's service. Impression & Plan Post-op pain Discharge Plan Visit Data Chief Complaint: Abdominal Pain Stated Complaint: PAIN AFTER SURGERY, RIGHT BELOW RIBCAGE ED Provider: Ean Le Discharge Problem: Post-op pain Patient Disposition: Being Evaluated by Surgeon Forms Stand Alone Forms: [facility] Prescriptions Prescriptions: No Action Ocrevus 30 mg/mL solution 600 mg IV .COMPLEX Qty: 20 1RF Rx Instructions: 600mg IV every 6 months. 30 mins before each infusion, Premedicate w/ Methylprednisolone 100mg IV, Diphenhydramine 25mg IV, and Acetaminophen 500mg PO.; May give an additional 25mg Diphenhydramine IV during infusion PRN pantoprazole 40 mg tablet,delayed release (DR/EC) 40 mg PO DAILY Qty: 90 0RF albuterol sulfate 90 mcg/actuation HFA aerosol inhaler 1 - 2 puff inhalation Q4H PRN (Reason: extrinsic asthma) Qty: 8.5 1RF Rx Instructions: 1 - 2 puffs inhalation Q4-6H PRN; Zepbound 7.5 mg/0.5 mL pen injector 7.5 mg subcut .weekly Qty: 2 0RF Hold Instructions: Resume on 10/11/24. hold 1-2 weeks cyanocobalamin (vitamin B-12) 1,000 mcg tablet, sublingual 1,000 mcg SL QPM Qty: 30 rizatriptan 10 mg tablet,disintegrating 10 mg PO Q2H PRN (Reason: migraine headache) Qty: 12 5RF Rx Instructions: do not exceed 3 doses per 24 hrs cholecalciferol (vitamin D3) 25 mcg (1,000 unit) capsule 2,000 unit PO QPM estradiol 0.075 mg/24 hr patch semiweekly 1 patch transdermal .COMPLEX Qty: 24 4RF Rx Instructions: Replace patch every 3 to 4 days meclizine 25 mg tablet 25 mg PO DAILY PRN (Reason: history of vertigo) Qty: 30 1RF oxycodone 5 mg/5 mL Solution 5 mg PO Q4H PRN (Reason: pain) Qty: 100 0RF polyethylene glycol 3350 [Miralax] 17 gram Powder In Packet 17 g PO DAILY PRN (Reason: constipation) Qty: 0 0RF Rx Instructions: over the counter. take daily until having regular BMs acetaminophen 325 mg Tablet 650 mg PO Q6H Qty: 0 0RF Rx Instructions: buy over the counter. take round the clock at least until no longer needing oxycodone, then decrease to as needed Referrals Referrals: Iza Apple, [Primary Care Provider] -
[2024-10-07] MEDS ORDERED: oxyCODONE HCL IR 5 MG TAB (IMMEDIATE RELEASE) PO PRN (17:49)
[2024-10-07] MEDS ORDERED: ALBUTEROL HFA 8 GM INHALER INH PRN (17:49)
[2024-10-07] MEDS ORDERED: MECLIZINE HCL 25 MG TAB PO PRN (17:49)
[2024-10-07] MEDS ORDERED: MoRPHine SULFATE 4 MG/ML 1 ML CARP\\VIAL IV PRN (17:49)
[2024-10-07] MEDS: Patient's HEIGHT &/or WEIGHT Needed STA (18:35)
[2024-10-07] MEDS: SODIUM CHLORIDE 0.9% 1,000 ML IV SCH (18:40)
[2024-10-07] MEDS: ACETAMINOPHEN 1,000 MG/100 ML VIAL IV PRN (19:54)
[2024-10-07] MEDS: ONDANSETRON INJ 2 MG/ML 2 ML VIAL IV PRN (19:55)
--- NOTE | 2024-10-07 20:13 | Nuclear Medicine Report ---
EXAM: NM hepatobiliary CLINICAL HISTORY: R/o bile leak. TECHNIQUE: After intravenous administration of 3.6 mCi of Tc 99m Mebrofeni, a dynamic anterior 60-second images of the liver were acquired for one hour. The patient was then in an erect position for 15 minutes, and then 3 static views of the abdomen were acquired. COMPARISON: 10/02/2024 US. FINDINGS: Status post cholecystectomy with non-visualization of the gallbladder. There is no extra luminal activity suspicious for biliary leak Some activity appeared in the stomach at 51-55 minutes. Normal tracer activity is seen throughout the liver. At approximately 6-10 minutes post-injection, tracer activity is noted in the proximal biliary tree. Small bowel activity is observed at approximately 16-20 minutes post-injection. IMPRESSION: There is no extra luminal activity suspicious for biliary leak. Electronically signed by Juan Tinsley 10-07-2024 8:13 PM
[2024-10-07] MEDS: oxyCODONE HCL IR 5 MG TAB (IMMEDIATE RELEASE) PO PRN (21:28)
[2024-10-08] MEDS: MoRPHine SULFATE 2 MG/ML CARP IV PRN (06:33)
--- NOTE | 2024-10-08 07:37 | Surgery Progress Note ---
Date of Service October 08, 2024 Assessment & Plan (1) Post-op pain: Plan: pt s/p lap sarbjit on 10/03 here with post op pain labs this AM are pending. Vital signs are stable CT yesterday unremarkable for acute post op issues. HIDA negative for bile leak she continues to report RUQ discomfort/nausea. abdomen is soft but tender in the RUQ/R ribs region. incisions c/d/i Will offer dose of IV toradol and IV APAP this AM No invasive procedures warranted at this time so will allow diet as tolerates Pending pain/symptom control and blood work this AM will determine her dispo plan Admission and Anticipated Discharge Date Admission Date: October 07, 2024 Subjective Patient reports ongoing pain in the RUQ/R ribs region, associated with some nausea. Feels like when she breaths sometimes it catches in a twinge of pain. Required oxy and IV morphine this AM. She is passing gas, last BM yesterday. She is voiding. Physical Exam Physical Exam: awake, alert Respiratory: normal respiratory effort Gastrointestinal (Abdomen): Inspection/Auscultation: + abdominal surgical incision (c/d/i , small ecchymosis to epigastric site); abdomen not distended Percussion/Palpation: + abdomen tender (ruq/r ribs) and abdomen soft Results & Data Vital Signs (Past 12 Hours) Vital Signs Temp Pulse Resp BP Pulse Ox O2 Del Method 10/07/24 22:03 97.7 F 72 16 120/69 98 Room Air PG Care Time/CCT Total # of Minutes Spent Total Time Spent with Patient: Total time spent is greater than 50% in coordination of care (as documented) at patient's floor/unit and/or counseling patient: Coding Level of Care Code 91677 Post Operative Follow-Up Diagnoses Post-op pain G89.18
[2024-10-08] MEDS: PANTOprazole 40 MG TAB PO SCH (07:55)
[2024-10-08] MEDS: ACETAMINOPHEN 1,000 MG/100 ML VIAL IV STA (08:02)
[2024-10-08] MEDS: KETOROLAC TROMETHAMINE 15 MG/ML VIAL IV ONE (08:02)
[2024-10-08 08:04] LABS: Basophils # (auto) 0.07 K/uL (0.00-0.20); Basophils % (auto) 0.7 %; Eosinophils % (auto) 7.5 %; Hematocrit (blood only) 39.1 % (37.0-47.0); Hemoglobin 13.5 g/dl (12.0-16.0); Immature Granulocytes # (auto) 0.02 K/uL (0.01-0.20); Immature Granulocytes % (auto) 0.2 %; Lymphocytes # (auto) 1.78 K/uL (1.20-3.40); Mean Corpuscular Hemoglobin 30.2 pg (25.0-34.0); Mean Corpuscular Hgb Conc 34.5 g/dL (32.0-36.0); Mean Corpuscular Volume 87.5 fL (80.0-100.0); Mean Platelet Volume 10.9 fL (9.4-12.4); Monocytes # (auto) 1.01 K/uL (0.11-0.59); Monocytes % (auto) 10.8 %; Neutrophils % (auto) 61.8 %; Platelet Count 331 K/uL (130-400); RDW Standard Deviation 41.6 fL (36.4-46.3); Red Blood Count 4.47 M/uL (4.20-5.40); White Blood Count 9.38 K/ul (4.8-10.8)
[2024-10-08 08:26] LABS: Albumin Globulin Ratio 1.4 (0.9-2); Albumin Level 3.9 gm/dl (3.4-5.0); BUN Creatinine Ratio 16.7 (10-20); Bilirubin,Total 0.7 mg/dl (0.2-1.0); Calcium 8.5 mg/dl (8.6-10.3); Creatinine Clr Calc Pharmacy 107.3 ml/min; Globulin 2.8 gm/dl (2.5-4.0); Potassium 3.7 mmol/L (3.5-5.1); Total Protein 6.7 gm/dl (6.0-8.3)
[2024-10-08] MEDS ORDERED: oxyCODONE HCL SOLN 5 MG/5 ML UDC PO PRN (10:23)
[2024-10-08] MEDS: oxyCODONE HCL SOLN 5 MG/5 ML UDC PO PRN (12:01)
[2024-10-08] MEDS: HEPARIN SOD 5,000 UNIT/0.5 ML VIAL SQ SCH (14:21)
[2024-10-08] MEDS: KETOROLAC TROMETHAMINE 15 MG/ML VIAL IV SCH (14:21)
[2024-10-08] MEDS: ACETAMINOPHEN 1,000 MG/100 ML VIAL IV SCH (16:21)
[2024-10-09 07:33] LABS: Basophils # (auto) 0.07 K/uL (0.00-0.20); Basophils % (auto) 0.8 %; Eosinophils # (auto) 0.66 K/uL (0.00-0.50); Eosinophils % (auto) 7.4 %; Hematocrit (blood only) 39.5 % (37.0-47.0); Hemoglobin 13.3 g/dl (12.0-16.0); Immature Granulocytes # (auto) 0.05 K/uL (0.01-0.20); Immature Granulocytes % (auto) 0.6 %; Lymphocytes # (auto) 1.32 K/uL (1.20-3.40); Lymphocytes % (auto) 14.7 %; Mean Corpuscular Hemoglobin 29.5 pg (25.0-34.0); Mean Corpuscular Hgb Conc 33.7 g/dL (32.0-36.0); Mean Corpuscular Volume 87.6 fL (80.0-100.0); Mean Platelet Volume 10.5 fL (9.4-12.4); Monocytes # (auto) 0.68 K/uL (0.11-0.59); Monocytes % (auto) 7.6 %; Neutrophils # (auto) 6.18 K/uL (1.40-6.50); Neutrophils % (auto) 68.9 %; Platelet Count 338 K/uL (130-400); RDW Coefficient of Variation 12.9 % (11.5-14.5); RDW Standard Deviation 41.4 fL (36.4-46.3); Red Blood Count 4.51 M/uL (4.20-5.40); White Blood Count 8.96 K/ul (4.8-10.8)
[2024-10-09 07:41] LABS: Albumin Globulin Ratio 1.4 (0.9-2); Albumin Level 3.9 gm/dl (3.4-5.0); BUN Creatinine Ratio 9.1 (10-20); Bilirubin,Total 0.5 mg/dl (0.2-1.0); Calcium 8.6 mg/dl (8.6-10.3); Creatinine Clr Calc Pharmacy 117.1 ml/min; Globulin 2.8 gm/dl (2.5-4.0); Potassium 3.7 mmol/L (3.5-5.1); Total Protein 6.7 gm/dl (6.0-8.3)
[2024-10-09 07:56] VITALS: BP 115/81; PULSE 71; RESP 16; TEMP 97.7; O2SAT 98
--- NOTE | 2024-10-09 10:45 | Surgery Progress Note ---
Date of Service October 09, 2024 Assessment & Plan (1) Post-op pain: Plan: pt s/p lap sarbjit on 10/03 here with post op pain labs this AM are pending. Vital signs are stable CT yesterday unremarkable for acute post op issues. HIDA negative for bile leak she continues to report RUQ discomfort/nausea. abdomen is soft but tender in the RUQ/R ribs region. incisions c/d/i Will discharge to home at lunchtime Admission and Anticipated Discharge Date Admission Date: October 07, 2024 Subjective Continuing to have some abdominal pain. Tolerated clears. Tolerating pain. No fevers or chills Physical Exam Physical Exam: awake, alert Gastrointestinal (Abdomen): Inspection/Auscultation: + abdominal surgical incision (c/d/i , small ecchymosis to epigastric site); abdomen not distended Percussion/Palpation: + abdomen tender (ruq/r ribs) and abdomen soft Results & Data Vital Signs (Past 12 Hours) Vital Signs Temp Pulse Resp BP Pulse Ox O2 Del Method 10/09/24 07:53 36.5 C 71 16 115/81 98 Room Air
--- NOTE | 2024-10-11 11:47 | Discharge Summary ---
Date of Service October 09, 2024 Admission HPI Per Admitting Provider This is a 43yF who is s/p laparoscopic cholecystectomy on 10/03/[address] Schneider, discharged on POD#1, who now presents to the ER today with complaints of abdominal pain, nausea/dry heaves. The patient reports associated chills. She called the surgical office and was asked to come into the ER for further evaluation. She underwent a CT a/p that showed postoperative changes compatible with recent laparoscopic cholecystectomy with trace expected fluid within the margaret hepatis. No drainable postoperative fluid collections. CT chest showed no evidence of pulmonary embolism. The patient reports taking her oxycodone intermittently as needed. The pain is more located in the RUQ region. No emesis. Principal Diagnosis post op pain h/o laparoscopic cholecystectomy Discharge Exam awake, alert Respiratory normal respiratory effort Gastrointestinal (Abdomen) Inspection/Auscultation: + abdominal surgical incision (c/d/i , small ecchymosis to epigastric site); abdomen not distended Percussion/Palpation: + abdomen tender (ruq/r ribs) and abdomen soft Discharge Data Allergies Allergy/AdvReac Type Severity Reaction Status Date / Time ferric subsulfate Allergy Unknown MONSEL'S Verified 08/13/24 10:03 SOLUTION-- VOMITTING, SEVERE STOMACH PAIN mustard AdvReac Intermediate Abdominal Verified 08/13/24 10:03 cramps Penicillins AdvReac Intermediate Severe N/V Verified 08/13/24 10:03 Consultations 10/07/24 13:01 Consult General Surgery Stat 10/07/24 14:48 ED Decision to Admit Stat Ordered Studies 10/07/24 11:09 CT abd pelvis IV con only Stat 10/07/24 11:16 CT angio chest PE protocol Stat Hospital Course (1) Postoperative abdominal pain: This is a 43y F s/p lap sarbjit on 10/03 admitted on 10/07 with post operative pain. CT a/p was performed which revealed no acute post surgical issues. WBC 12 and LFTs unremarkable. Due to her pain and nausea she was admitted to symptom control and to obtain a HIDA scan. HIDA scan obtained and returned negative for bile leak. On 10/08 labs showed WBC 9 with normal LFTs. She continued with RUQ pain and nausea. Her pain regimen was adjusted with standing Tylenol and Toradol and prn IV/po narcotics as needed. Diet was slowly advanced as she tolerated. Outside of her RUQ tenderness to palpation it was otherwise soft, non distended. On 10/09 patient with stable vitals and unremarkable blood work. Pain present but improved from initial admission. She was ultimately deemed stable for discharge to home. She was instructed to follow up with Dr. Schneider in the office in 1-2 weeks. Total Time Total Time Spent Total Time Spent (In Minutes): 10 Discharge Plan Discharge Items Patient Disposition: Home - Self-Care Reason For Visit: P/O/ ABD PAIN, R/O BILE LEAK Discharge Diagnosis: post operative pain Activity: Per Instructions section Lifting: No more than 10 pounds Bathing Comment: may shower; no soaking in tubs/pools from 2 weeks from surgery Exercise/Sports: Wait until after follow-up appointment Driving/Machine Use: no driving while taking any narcotics for pain Non-emergency contact: Surgeon Call non-emergency contact if: you have any medication questions, your symptoms worsen, your pain is not controlled, you have a fever, your temperature is above 101.5, your wound has increased redness, your wound has increased drainage and your wound pain has increased Follow-up/Referrals: Iza Apple DO [Primary Care Provider] - Sergio Schneider DO, FACS [Physician] - (please call to schedule follow up in the office within 2 weeks ) Diet: Regular Addtl Attending Provider Instructions: SPECIAL CARE INSTRUCTIONS: * You have skin glue over your incisions called dermabond. you may shower with this on. It will tend to dissolve and fall off within a couple weeks. Do not pick at the skin glue * You may shower . NO soaking in pools or baths for 2 weeks * No lifting greater than 10lbs. No strenuous exercise until cleared by surgeon. Light walking is accepted. * No driving while taking narcotic pain medication * No drinking alcohol while taking narcotic pain medication * You have been provided an additional script of liquid oxycodone to fill only if needed & if you are running low from your initial prescription. Do not take anymore Oxycodone than prescribed, 5mL orally every 4-6 hours, as needed for pain. * May use Ibuprofen/Tylenol over the counter for pain as tolerated. Do not exceed 3grams of Tylenol per 24 hours * Expect some swelling and bruising. * Diet- you may resume your regular diet Call your doctor if: * Temperature above 101 degrees, nausea/vomiting, fever/chills * Pain not relieved by pain medicine ordered * There is increased drainage or redness from any incision * You have any unanswered questions or concerns [phone]. FOLLOW UP VISIT: If not already scheduled, please call the office for a follow-up visit. Office Pending Studies at Discharge: No Stand-Alone Forms: My [facility] ID [place], Smoking Cessation Medications and DC Order Prescriptions: New ondansetron 4 mg tablet,disintegrating 4 mg PO Q8H PRN (Reason: nausea and vomiting) Qty: 12 0RF Continued Ocrevus 30 mg/mL solution 600 mg IV .COMPLEX Qty: 20 1RF Rx Instructions: 600mg IV every 6 months. 30 mins before each infusion, Premedicate w/ Methylprednisolone 100mg IV, Diphenhydramine 25mg IV, and Acetaminophen 500mg PO.; May give an additional 25mg Diphenhydramine IV during infusion PRN pantoprazole 40 mg tablet,delayed release (DR/EC) 40 mg PO DAILY Qty: 90 0RF albuterol sulfate 90 mcg/actuation HFA aerosol inhaler 1 - 2 puff inhalation Q4H PRN (Reason: extrinsic asthma) Qty: 8.5 1RF Rx Instructions: 1 - 2 puffs inhalation Q4-6H PRN; Zepbound 7.5 mg/0.5 mL pen injector 7.5 mg subcut .weekly Qty: 2 0RF Hold Instructions: Resume on 10/11/24. hold 1-2 weeks cyanocobalamin (vitamin B-12) 1,000 mcg tablet, sublingual 1,000 mcg SL QPM Qty: 30 rizatriptan 10 mg tablet,disintegrating 10 mg PO Q2H PRN (Reason: migraine headache) Qty: 12 5RF Rx Instructions: do not exceed 3 doses per 24 hrs cholecalciferol (vitamin D3) 25 mcg (1,000 unit) capsule 2,000 unit PO QPM estradiol 0.075 mg/24 hr patch semiweekly 1 patch transdermal .COMPLEX Qty: 24 4RF Rx Instructions: Replace patch every 3 to 4 days meclizine 25 mg tablet 25 mg PO DAILY PRN (Reason: history of vertigo) Qty: 30 1RF oxycodone 5 mg/5 mL Solution 5 mg PO Q4H PRN (Reason: pain) Qty: 100 0RF polyethylene glycol 3350 [Miralax] 17 gram Powder In Packet 17 g PO DAILY PRN (Reason: constipation) Qty: 0 0RF Rx Instructions: over the counter. take daily until having regular BMs acetaminophen 325 mg Tablet 650 mg PO Q6H Qty: 0 0RF Rx Instructions: buy over the counter. take round the clock at least until no longer needing oxycodone, then decrease to as needed Discharge Orders: Discharge Order (Routine); Ordered 10/09/24 Ordered By: Lasha Cummings/Other Patient Handouts: DVT Post Op Prevention Admission Data Admit Date/Time: 10/07/24 15:05 Attending Provider: Gm Thrasher Admit Provider: Gm Thrasher Primary Care Provider: Iza Apple Other Providers: Gm Thrasher Other Interventions: Discharge Summary Assessment (RN) Last Done: 10/09/24 13:10 Coding Level of Care Code 72675 IN/OBS DISCH 30 MIN/LESS Diagnoses Postoperative abdominal pain R10.9; G89.18
== END 2024-10-09 14:25 | disposition home or self-care (01) ==
LOC: ED 10:56 → 3N 10:56